=== PATIENT | female | born 1935 | race Caucasian/White ===

== ENCOUNTER 2018-10-14 11:30 | Day surgery (SDC) | payer MEDICARE, OTHER ==
[2018-10-14] MEDS ORDERED: NALOXONE HCL INJ/PF 0.4 MG/1 ML SDV ONE (12:07)
[2018-10-14] MEDS ORDERED: ONDANSETRON HCL INJ/PF 4 MG/2 ML SDV ONE (12:07)
[2018-10-14] MEDS ORDERED: FLUMAZENIL INJ 0.5 MG/5 ML VIAL ONE (12:07)
[2018-10-14] MEDS ORDERED: GLUCAGON,HUMAN RECOMB 1 MG INJ ONE (12:08)
[2018-10-14] MEDS ORDERED: EPINEPHRINE INJ 1 MG/10 ML DISP.SYRIN ONE (12:08)
[2018-10-14] MEDS: MIDAZOLAM 2 MG/2 ML INJ ONE ×3 (12:15→12:30)
[2018-10-14] MEDS: FENTANYL CITRATE INJ/PF 100 MCG/2 ML AMPUL ONE ×2 (12:17→12:25)
--- NOTE | 2018-10-14 13:00 | Operative Report ---
Operative Report DATE OF SURGERY: 10/14/18 Operative Report: The risks, benefits and alternatives of the procedure including the risk of bleeding, perforation requiring surgery are explained to the patient in detail and informed consent is obtained. Patient is brought back to the endoscopy suite and placed in the left, lateral decubital position. Timeout was called. Conscious sedation medications are provided. Rectal examination is done which did not reveal any masses, tears or fissures. An Olympus videoscope was introduced into the patient's rectum. Keeping the lumen in sight at all times the scope was very carefully advanced all the way to the cecum. The cecum was identified by the usual anatomical landmarks of the ileocecal valve as well as appendiceal orifice. Prep was good. The scope was then sequentially pulled back via the rest segments of the colon including the ascending colon, hepatic flexure, transverse colon, splenic flexure, descending colon and finally in to the rectosigmoid portions of the colon. Retroflexion maneuver was performed. PREOPERATIVE DIAGNOSIS: Personal history of polyp POSTOPERATIVE DIAGNOSIS: Descending colon polyp removed via snare polypectomy. Sigmoid diverticulosis without any evidence of diverticulitis. Internal hemorrhoids. Right colon Inflammation status post biopsy OPERATION: Colonoscopy with snare polypectomy. Colonoscopy with biopsy SURGEON: SAQIB OSORIO ANESTHESIA: Moderate Sedation - 4 mg of Versed, 25 mcg of fentanyl for conscious sedation monitoring time 30 minutes. TISSUE REMOVED OR ALTERED: As noted above. COMPLICATIONS: None. ESTIMATED BLOOD LOSS: None. INTRAOPERATIVE FINDINGS: As noted above. PROCEDURE: Patient tolerated the procedure well. No immediate post procedure complications are noted. Patient discharged in good condition. Discharge date 10/14/2018. Discharge diet: Regular. Discharge activity: Regular. 2-3-week follow-up to discuss findings Patient is to try to call the office or proceed to the emergency room today. For the above questions. Wait on the pathology. 3-5-year surveillance colonoscopy.
[2018-10-14 14:01] VITALS: BP 109/52
== END 2018-10-14 13:45 | disposition home or self-care (01) ==
LOC: END 11:30
PROVIDERS: ATTEND Internal Medicine Gastroenterology
DX: D12.4 Benign neoplasm of descending colon (principal); K57.30 Diverticulosis of large intestine without perforation or abscess without bleeding; K64.8 Other hemorrhoids; Z86.010 Personal history of colon polyps; E03.9 Hypothyroidism, unspecified; M19.90 Unspecified osteoarthritis, unspecified site; E78.5 Hyperlipidemia, unspecified; I25.10 Atherosclerotic heart disease of native coronary artery without angina pectoris; I11.9 Hypertensive heart disease without heart failure; G62.9 Polyneuropathy, unspecified; L40.50 Arthropathic psoriasis, unspecified; Z85.3 Personal history of malignant neoplasm of breast; Z79.899 Other long term (current) drug therapy; Z79.891 Long term (current) use of opiate analgesic; Z88.2 Allergy status to sulfonamides; Z91.041 Radiographic dye allergy status
CPT/HCPCS: 45385; 88342 ×2; 88341 ×2; 88305 ×2; J2250; J3010; 45380; J0171; J1610; J2310; J2405; J3490

== ENCOUNTER 2018-12-06 15:55 | Emergency (ER) | payer MEDICARE, OTHER ==
[2018-12-06] MEDS ORDERED: HYDROCODONE/ACETAMINOPHEN 5-325 MG TABLET PO ONE (16:07)
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
--- NOTE | 2018-12-06 17:32 | RADIOLOGY REPORT (SQ) ---
EXAM DESCRIPTION: CT HEAD WITHOUT COMPLETED DATE/TIME: 12/06/2018 5:16 pm REASON FOR STUDY: fall, trauma to head neck and chest COMPARISON: Same day cervical spine CT TECHNIQUE: Axial images acquired through the brain without intravenous contrast. Images reviewed wi th bone, brain and subdural windows. Additional sagittal and coronal reconstructions were generated. Images stored on PACS. All CT scanners at this facility use dose modulation, iterative reconstruction, and/or weight based d osing when appropriate to reduce radiation dose to as low as reasonably achievable (ALARA). [facility]: Dose Right [facility]: CareDose [facility]: Dose Right [facility]: Teradose 4D [facility]: [employer]Me RADIATION DOSE: CT Rad equipment meets quality standard of care and radiation dose reduction techniq ues were employed. CTDIvol: 53.2 mGy. DLP: 1044 mGy-cm. mGy. LIMITATIONS: None. FINDINGS: VENTRICLES: Normal size and contour. CEREBRUM: No masses. No hemorrhage. No midline shift. No evidence for acute infarction. Few scatte red areas of low density in the white matter most likely chronic small vessel ischemic changes. CEREBELLUM: No masses. No hemorrhage. No alteration of density. No evidence for acute infarction. EXTRAAXIAL SPACES: No fluid collections. No masses. ORBITS AND GLOBE: No intra- or extraconal masses. Normal contour of globe without masses. CALVARIUM: No fracture. PARANASAL SINUSES: No fluid or mucosal thickening. SOFT TISSUES: No mass or hematoma. OTHER: No other significant finding. IMPRESSION: NO ACUTE INTRACRANIAL IMAGING FINDINGS. EVIDENCE OF ACUTE STROKE: NO. COMMENT: Quality ID # [id number]: Final reports with documentation of one or more dose reduction techniques (e.g., Automated exposure control, adjustment of the mA and/or kV according to patient size, use of iterative reconstruction technique) TECHNICAL DOCUMENTATION: JOB ID: [id number] [employer]- All Rights Reserved Reading location - IP/workstation name: [email or web address]
--- NOTE | 2018-12-06 17:35 | RADIOLOGY REPORT (SQ) ---
EXAM DESCRIPTION: CT CERVICAL SPINE WITHOUT COMPLETED DATE/TIME: 12/06/2018 5:16 pm REASON FOR STUDY: fall, trauma to head neck and chest COMPARISON: Same day head CT TECHNIQUE: Axial images acquired through the cervical spine without intravenous contrast. Images re viewed with lung, soft tissue and bone windows. Reconstructed coronal and sagittal MPR images review ed. Images stored on PACS. All CT scanners at this facility use dose modulation, iterative reconstruction, and/or weight based d osing when appropriate to reduce radiation dose to as low as reasonably achievable (ALARA). [facility]: Dose Right [facility]: CareDose [facility]: Dose Right [facility]: Teradose 4D [facility]: [employer] RADIATION DOSE: CT Rad equipment meets quality standard of care and radiation dose reduction techniq ues were employed. CTDIvol: 17.8 mGy. DLP: 822 mGy-cm. mGy. LIMITATIONS: None. FINDINGS: ALIGNMENT: Anatomic. MINERALIZATION: Normal. VERTEBRAL BODIES: No fractures or dislocation. DISCS: Mild diffuse loss of disc height. Multilevel small posterior vertebral body osteophytes resul ting in osseous narrowing of the left C3-C4 and C4-C5 neural foramen. FACETS, LATERAL MASSES, POSTERIOR ELEMENTS: No fractures. No dislocation. No acute findings. Mild uncovertebral facet arthropathy. HARDWARE: None in the spine. VISUALIZED RIBS: No fractures. LUNG APICES AND SOFT TISSUES: No significant or acute findings. Metallic clips within the soft tissu es of the neck. OTHER: No other significant finding. IMPRESSION: 1. No acute fracture or listhesis of the cervical spine. 2. Mild degenerative disc disease and uncovertebral facet arthropathy. TECHNICAL DOCUMENTATION: JOB ID: [id number] Quality ID # [id number]: Final reports with documentation of one or more dose reduction techniques (e.g., Au tomated exposure control, adjustment of the mA and/or kV according to patient size, use of iterative reconstruction technique) 2010 [employer]- All Rights Reserved Reading location - IP/workstation name: [email or web address]
--- NOTE | 2018-12-06 17:40 | RADIOLOGY REPORT (SQ) ---
EXAM DESCRIPTION: CT CHEST WITHOUT COMPLETED DATE/TIME: 12/06/2018 5:16 pm REASON FOR STUDY: fall, trauma to head neck and chest COMPARISON: Chest radiograph 07/31/2016 TECHNIQUE: CT scan performed of the chest without intravenous contrast. Images reviewed with lung, soft tissue and bone windows. Reconstructed coronal and sagittal MPR images reviewed. All images st ored on PACS. All CT scanners at this facility use dose modulation, iterative reconstruction, and/or weight based d osing when appropriate to reduce radiation dose to as low as reasonably achievable (ALARA). [facility]: Dose Right [facility]: CareDose [facility]: Dose Right [facility]: Teradose 4D [facility]: [employer] RADIATION DOSE: CT Rad equipment meets quality standard of care and radiation dose reduction techniq ues were employed. CTDIvol: 14.4 mGy. DLP: 513 mGy-cm. mGy. LIMITATIONS: No technical limitations. FINDINGS: LUNGS AND PLEURA: No masses, infiltrates, or pneumothorax. No pleural effusions or pleura l calcifications. Moderate-sized bulla of the right upper lobe. HILAR AND MEDIASTINAL STRUCTURES: No identified masses or abnormal nodes. No obvious aneurysm. HEART AND VASCULAR STRUCTURES: No aneurysm. No pericardial effusion. Calcified plaque of the visual ized aorta. UPPER ABDOMEN: No significant findings. Limited exam. THYROID AND OTHER SOFT TISSUES: No masses. No adenopathy. Metallic clips within the visualized soft tissues of the neck. BONES: No significant finding. Mild degenerative disc disease of the thoracic spine. HARDWARE: None in the chest. OTHER: No other significant findings. IMPRESSION: NO SIGNIFICANT FINDING ON NON-CONTRASTED CHEST CT. TECHNICAL DOCUMENTATION: JOB ID: [id number] Quality ID # [id number]: Final reports with documentation of one or more dose reduction techniques (e.g., Au tomated exposure control, adjustment of the mA and/or kV according to patient size, use of iterative reconstruction technique) 2010 [employer]- All Rights Reserved Reading location - IP/workstation name: [email or web address]
[2018-12-06 18:10] VITALS: BP 148/31
== END 2018-12-06 18:19 | disposition home or self-care (01) ==
LOC: ER 15:55
DX: S13.9XXA Sprain of joints and ligaments of unspecified parts of neck, initial encounter (principal); S09.90XA Unspecified injury of head, initial encounter; R07.89 Other chest pain; R51 Headache; M54.2 Cervicalgia; W19.XXXA Unspecified fall, initial encounter; I10 Essential (primary) hypertension
CPT/HCPCS: 99284; 70450; 71250; 72125; A9270

== ENCOUNTER 2019-09-12 10:32 | Inpatient (IN) | payer MEDICARE, OTHER ==
--- NOTE | 2019-09-12 11:23 | ER Document Report ---
ED Medical Screen (RME) - General Chief Complaint: Fall Stated Complaint: FALL/SHOULDER PAIN Time Seen by Provider: 09/12/19 11:14 Primary Care Provider: BAKARI ARRIAGA MD [Primary Care Provider] - Follow up as needed Mode of Arrival: Medic Information source: Patient, Relative Notes: 83-year-old female presents to ED for complaint of pain to her left side of her face head back of her neck left shoulder and left elbow. She states she tripped going from one room to the other last night and fell landing on her left side. When family found her this morning they called EMS. EMS states that the patient was laying in the same position for at least 15 to 16 hours when they found her. She does have pain to her head face neck her shoulder face and head are bruised and swollen she has tenderness to the left elbow. She states she also has a lot of pain to her left hip where she was lying. I have greeted and performed a rapid initial assessment of this patient. A comprehensive ED assessment and evaluation of the patient, analysis of test results and completion of medical decision making process will be conducted by an additional ED providers. TRAVEL OUTSIDE OF THE [place] IN LAST 30 DAYS: No - Related Data Allergies/Adverse Reactions: Sulfa (Sulfonamide Antibiotics) Allergy (Severe, Verified 12/06/18 16:30) n and v IV Contrast Dye Allergy (Intermediate, Uncoded 09/12/19 11:02) Hives Home Medications: Amlodipine 5 mg 1 tab daily. Hydroxychlodoquine 200 mg 1 tab BID. Levothyroxine 75 mg 1 tab daily. Isosorbide mononit ER 30 mg 1 tab daily. Triamterene-HCTZ 37.5-25 mg 1 tab daily. Tramadol HCL 50 mg 1 tab BID. Nexium 20 mg 1 tab daily Past Medical History - Social History Frequency of alcohol use: None Drug Abuse: None - Past Medical History Cardiac Medical History: Reports: Hx Hypertension Denies: Hx Coronary Artery Disease, Hx Heart Attack Pulmonary Medical History: Denies: Hx Asthma, Hx Bronchitis, Hx COPD, Hx Pneumonia Neurological Medical History: Denies: Hx Cerebrovascular Accident, Hx Seizures Renal/ Medical History: Denies: Hx Peritoneal Dialysis Musculoskeltal Medical History: Reports Hx Arthritis Past Surgical History: Reports: Hx Hysterectomy, Hx Mastectomy - left, Hx Thyroid Surgery. Denies: Hx Pacemaker - Immunizations Hx Diphtheria, Pertussis, Tetanus Vaccination: No Doctor's Discharge - Discharge Referrals: BAKARI ARRIAGA MD [Primary Care Provider] - Follow up as needed
[2019-09-12 11:33] LABS: HEMATOCRIT 40.5 % (36.0-47.0); HEMOGLOBIN 13.5 g/dL (12.0-15.5); MEAN CORPUSCULAR HGB CONC 33.4 g/dL (32.0-36.0); MEAN CORPUSCULAR VOLUME 90 fl (80-97); PLATELET COUNT 424 10^3/uL (150-450); RED BLOOD COUNT 4.52 10^6/uL (3.72-5.28); RED CELL DISTRIBUTION WIDTH 12.7 % (11.5-14.0); WHITE BLOOD COUNT 17.6 10^3/uL (4.0-10.5)
[2019-09-12 11:38] LABS: INTERNATIONAL RATION (INR) 1.12; PROTHROMBIN TIME 14.4 SEC (11.4-15.4)
[2019-09-12 11:49] LABS: ABSOLUTE LYMPHOCYTES# (MANUAL) 0.5 10^3/uL (0.5-4.7); ABSOLUTE MONOCYTES # (MANUAL) 1.1 10^3/uL (0.1-1.4); BASOPHILS % (MANUAL) 0 % (0-2); EOSINOPHILS % (MANUAL) 0 % (0-6); LYMPHOCYTES % (MANUAL) 3 % (13-45); MONOCYTES % (MANUAL) 6 % (3-13); SEGMENTED NEUTROPHILS % (MAN) 91 % (42-78); TOTAL CELLS COUNTED 100
[2019-09-12 11:50] LABS: ALKALINE PHOSPHATASE 87 U/L (38-126); ANION GAP 13 (5-19); ASPARTATE AMINO TRANSFERASE 46 U/L (14-36); BILIRUBIN,DIRECT 0.2 mg/dL (0.0-0.4); BILIRUBIN,TOTAL 0.6 mg/dL (0.2-1.3); BLOOD UREA NITROGEN 24 mg/dL (7-20); CALCIUM 10.4 mg/dL (8.4-10.2); CARBON DIOXIDE 23 mmol/L (22-30); CHLORIDE 102 mmol/L (98-107); CREATINE KINASE 1352 U/L (30-135); GLUCOSE 129 mg/dL (75-110); PLATELET COMMENT ADEQUATE; POTASSIUM 4.2 mmol/L (3.6-5.0); SMUDGE CELLS PRESENT; TOTAL PROTEIN 6.5 g/dL (6.3-8.2)
[2019-09-12 12:01] LABS: CREATINE KINASE MB 28.4 ng/mL (<4.55)
[2019-09-12 12:04] LABS: TROPONIN I 0.057 ng/mL
[2019-09-12] MEDS ORDERED: NORMAL SALINE 1000 ML 1,000 ML IV ONE (12:38)
--- NOTE | 2019-09-12 12:41 | ER Document Report ---
ED Fall - General Chief Complaint: Fall Stated Complaint: FALL/SHOULDER PAIN Time Seen by Provider: 09/12/19 11:14 Primary Care Provider: BAKARI ARRIAGA MD [Primary Care Provider] - Follow up as needed Mode of Arrival: Medic Information source: Patient, Relative Notes: Patient is 83-year-old female with a history of arthritis who presents to the emergency department after a fall. Patient does live by herself. She reports falling last night around 6:30 PM and able to get up by herself. Family states they stop by her house this morning to check on her found her laying on the ground. Patient denies head injury or loss of consciousness. Patient reports last night she was sitting on a truck at the end of the bed when she attempted to get up and fell onto her left side. Patient states that she was unable to get up due to significant left upper arm pain and left hip pain. Patient denies hitting her head or loss of consciousness. Patient states she did urinate on herself multiple times that she was unable to get up. Patient reports left hip pain, left arm pain. Patient reports that her hip pain feels like her normal. TRAVEL OUTSIDE OF THE [place] IN LAST 30 DAYS: No - Related data Allergies/Adverse Reactions: Sulfa (Sulfonamide Antibiotics) Allergy (Severe, Verified 12/06/18 16:30) n and v IV Contrast Dye Allergy (Intermediate, Uncoded 09/12/19 11:02) Hives Home Medications: Amlodipine 5 mg 1 tab daily. Hydroxychlodoquine 200 mg 1 tab BID. Levothyroxine 75 mg 1 tab daily. Isosorbide mononit ER 30 mg 1 tab daily. Triamterene-HCTZ 37.5-25 mg 1 tab daily. Tramadol HCL 50 mg 1 tab BID. Nexium 20 mg 1 tab daily Past Medical History - General Information source: Patient, Relative - Social History Smoking Status: Never Smoker Frequency of alcohol use: None Drug Abuse: None Lives with: Alone Family History: None, Reviewed & Not Pertinent Patient has suicidal ideation: No Patient has homicidal ideation: No - Past Medical History Cardiac Medical History: Reports: Hx Hypertension Denies: Hx Coronary Artery Disease, Hx Heart Attack Pulmonary Medical History: Reports: None Denies: Hx Asthma, Hx Bronchitis, Hx COPD, Hx Pneumonia EENT Medical History: Reports: None Neurological Medical History: Reports: None. Denies: Hx Cerebrovascular Accident, Hx Seizures Endocrine Medical History: Reports: None Renal/ Medical History: Reports: Hx Kidney Stones. Denies: Hx Peritoneal Dialysis Malignancy Medical History: Reports: None GI Medical History: Reports: None Musculoskeletal Medical History: Reports Hx Arthritis Skin Medical History: Reports None Psychiatric Medical History: Reports: None Traumatic Medical History: Reports: None Infectious Medical History: Reports: None Past Surgical History: Reports: Hx Hysterectomy, Hx Mastectomy - left, Hx Thyroid Surgery. Denies: Hx Pacemaker - Immunizations Hx Diphtheria, Pertussis, Tetanus Vaccination: No Review of Systems - Review of Systems Constitutional: No symptoms reported EENT: No symptoms reported Cardiovascular: No symptoms reported Respiratory: No symptoms reported Gastrointestinal: No symptoms reported Genitourinary: No symptoms reported Female Genitourinary: See HPI Musculoskeletal: See HPI Skin: No symptoms reported Hematologic/Lymphatic: No symptoms reported Neurological/Psychological: No symptoms reported Physical Exam - Vital signs Vitals: Temp Pulse BP Pulse Ox 98.5 F 82 175/80 H 98 09/12/19 10:35 09/12/19 10:35 09/12/19 10:35 09/12/19 10:35 Interpretation: Hypertensive - Notes Notes: GENERAL: Supine, in hard c-collar, frail elderly adult. HEAD: Ecchymosis noted around the left eye and left side of the face, normocephalic. Nephrology stopped coming EYES: Pupils equal round and reactive to light, extraocular movements intact, sclera anicteric, conjunctiva are normal. ENT: Nares patent, oropharynx clear without exudates. Moist mucous membranes. NECK: ROM not assessed due to hard c-collar, supple without lymphadenopathy or JVD. LUNGS: Breath sounds clear to auscultation bilaterally and equal. No wheezes rales or rhonchi. HEART: Regular rate and rhythm without murmurs, rubs or gallops. ABDOMEN: Soft, nontender, normoactive bowel sounds. No guarding, no rebound. No masses appreciated. BACK: No cervical, thoracic, lumbar midline tenderness. No saddle anesthesia, normal distal neurovascular exam. GENITOURINARY: Deferred. EXTREMITIES: Erythema noted to left patella without edema or ecchymosis. Patient has significant ecchymosis noted to the left upper arm. The humerus is extremely tender to touch. Patient can move the left shoulder joint but reports this causes significant pain to the left upper arm. Patient has strong bilateral equal rn occupational. Patient has a strong palpable +2 left brachial and radial pulse. NEUROLOGICAL: Cranial nerves II through XII grossly intact. Normal speech, gait not tested. PSYCH: Normal mood, normal affect. SKIN: Warm, Dry, normal turgor, no rashes or lesions noted. Course - Re-evaluation Re-evalutation: 09/12/19 15:11 Patient medicated for left upper arm pain. I did speak with Dr. Barrera in regards to the patient's proximal humerus fracture that extends into the tuberosity. He does recommend the patient be placed in a sling and if she is discharged after being medically cleared he can see her in outpatient basis within the next week. He states that if she is admitted to the hospital he can consult with her while she is here. No surgical intervention needed at this time 09/12/19 18:01 Patient CK and troponin have increased. Will consult for admission. Upon reevaluation patient resting comfortably on stretcher. Patient denies chest pain. Patient does report feeling achy all over but attributes this to the fall. 09/12/19 18:15 I did consult the hospitalist group who will admit. They are aware of the increase in troponin, CK and new left bundle branch block. Patient does not kaplan ve any current cardiac symptoms. Patient was placed in a sling due to the orthopedic recommendations. Patient denies complaints or concerns at this time. 09/12/19 18:26 Chest x-ray was unremarkable for any rib fractures. - Vital Signs Vital signs: Temp Pulse Resp BP Pulse Ox 100.5 F H 82 18 162/61 H 96 09/12/19 16:07 09/12/19 10:35 09/12/19 17:06 09/12/19 17:06 09/12/19 17:00 - Laboratory Result Diagrams: 09/12/19 11:18 09/12/19 11:18 Laboratory results interpreted by me: 09/12/19 09/12/19 09/12/19 11:18 11:18 11:18 WBC 17.6 H Seg Neuts % (Manual) 91 H Lymphocytes % (Manual) 3 L Abs Neuts (Manual) 16.0 H BUN 24 H Est GFR (MDRD) Non-Af 50 L Glucose 129 H Calcium 10.4 H AST 46 H Creatine Kinase 1352 H CK-MB (CK-2) 28.40 H Urine Blood Leukocyte Esterase Rfl 09/12/19 09/12/19 14:10 17:04 WBC Seg Neuts % (Manual) Lymphocytes % (Manual) Abs Neuts (Manual) BUN Est GFR (MDRD) Non-Af Glucose Calcium AST Creatine Kinase 1492 H CK-MB (CK-2) Urine Blood SMALL H Leukocyte Esterase Rfl TRACE H 09/12/19 13:03 Patient has leukocytosis of 17.6. CK-MB is 28.4 and CK is 1352. Laboratory 09/12/19 09/12/19 09/12/19 11:18 11:18 11:18 WBC 17.6 H RBC 4.52 Hgb 13.5 Hct 40.5 MCV 90 MCH 30.0 MCHC 33.4 RDW 12.7 Plt Count 424 Lymph % (Auto) Not Reportable Allen % (Auto) Not Reportable Eos % (Auto) Not Reportable Baso % (Auto) Not Reportable Absolute Neuts (auto) Not Reportable Absolute Lymphs (auto) Not Reportable Absolute Monos (auto) Not Reportable Absolute Eos (auto) Not Reportable Absolute Basos (auto) Not Reportable Total Counted 100 Seg Neutrophils % Not Reportable Seg Neuts % (Manual) 91 H Lymphocytes % (Manual) 3 L Monocytes % (Manual) 6 Eosinophils % (Manual) 0 Basophils % (Manual) 0 Abs Neuts (Manual) 16.0 H Abs Lymphs (Manual) 0.5 Abs Monocytes (Manual) 1.1 Absolute Eos (Manual) 0.0 Abs Basophils (Manual) 0.0 Smudge Cells PRESENT Platelet Comment ADEQUATE PT INR APTT Sodium 138.0 Potassium 4.2 Chloride 102 Carbon Dioxide 23 Anion Gap 13 BUN 24 H Creatinine 1.04 Est GFR ( Amer) > 60 Est GFR (MDRD) Non-Af 50 L Glucose 129 H Calcium 10.4 H Total Bilirubin 0.6 Direct Bilirubin 0.2 Neonat Total Bilirubin Not Reportable Neonat Direct Bilirubin Not Reportable Neonat Indirect Bili Not Reportable AST 46 H ALT 23 Alkaline Phosphatase 87 Creatine Kinase 1352 H CK-MB (CK-2) 28.40 H Troponin I 0.057 Total Protein 6.5 Albumin 4.0 09/12/19 11:18 WBC RBC Hgb Hct MCV MCH MCHC RDW Plt Count Lymph % (Auto) Allen % (Auto) Eos % (Auto) Baso % (Auto) Absolute Neuts (auto) Absolute Lymphs (auto) Absolute Monos (auto) Absolute Eos (auto) Absolute Basos (auto) Total Counted Seg Neutrophils % Seg Neuts % (Manual) Lymphocytes % (Manual) Monocytes % (Manual) Eosinophils % (Manual) Basophils % (Manual) Abs Neuts (Manual) Abs Lymphs (Manual) Abs Monocytes (Manual) Absolute Eos (Manual) Abs Basophils (Manual) Smudge Cells Platelet Comment PT 14.4 INR 1.12 APTT 30.0 Sodium Potassium Chloride Carbon Dioxide Anion Gap BUN Creatinine Est GFR ( Amer) Est GFR (MDRD) Non-Af Glucose Calcium Total Bilirubin Direct Bilirubin Neonat Total Bilirubin Neonat Direct Bilirubin Neonat Indirect Bili AST ALT Alkaline Phosphatase Creatine Kinase CK-MB (CK-2) Troponin I Total Protein Albumin - Diagnostic Test Radiology reviewed: Reports reviewed Radiology results interpreted by me: 09/12/19 13:09 Elbow X-Ray 09/12/19 11:16 IMPRESSION: Very limited negative study Hip X-Ray 09/12/19 11:16 IMPRESSION: NEGATIVE STUDY OF THE LEFT HIP AND PELVIS. NO RADIOGRAPHIC EVIDENCE OF ACUTE INJURY. Shoulder X-Ray 09/12/19 11:16 IMPRESSION: Acute fracture, left proximal humerus metaphysis, extending into the greater tuberosity. Mild valgus angulation at the fracture site Cervical Spine CT 09/12/19 11:18 IMPRESSION: CHRONIC DEGENERATIVE CHANGES. NO ACUTE FINDINGS. Facial Bones CT 09/12/19 11:18 IMPRESSION: NO ACUTE FINDINGS. Head CT 09/12/19 11:18 IMPRESSION: MILD CHRONIC CHANGES OF ATROPHY AND MICROVASCULAR ISCHEMIA. NO ACUTE PROCESS. EVIDENCE OF ACUTE STROKE: NO. - EKG Interpretation by Me Additional EKG results interpreted by me: 09/12/19 18:17 Patient's EKG shows a sinus rhythm with a heart rate of 93. Patient's PA interval is 154, QT 384 and QTC is 478. Patient had a left axis deviation. Patient does have a left bundle branch block which does not appear to be present on previous EKG. Discharge - Discharge Clinical Impression: Elevated troponin Fall Qualifiers: Encounter type: initial encounter Qualified Code(s): W19.XXXA - Unspecified fall, initial encounter Rhabdomyolysis Qualifiers: Rhabdomyolysis type: traumatic Encounter type: initial encounter Qualified Code(s): T79.6XXA - Traumatic ischemia of muscle, initial encounter Fracture, humerus, proximal Qualifiers: Encounter type: initial encounter Fracture type: closed Fracture morphology: unspecified fracture morphology Laterality: left Qualified Code(s): S42.202A - Unspecified fracture of upper end of left humerus, initial encounter for closed fracture Head injury due to trauma Qualifiers: Encounter type: initial encounter Qualified Code(s): S09.90XA - Unspecified injury of head, initial encounter Leukocytosis Qualifiers: Leukocytosis type: unspecified Qualified Code(s): D72.829 - Elevated white blood cell count, unspecified Condition: Stable Disposition: ADMITTED OBSERVATION Admitting Provider: Moiz (Hospitalist) Unit Admitted: Medical Floor Referrals: BAKARI ARRIAGA MD [Primary Care Provider] - Follow up as needed
--- NOTE | 2019-09-12 12:50 | RADIOLOGY REPORT (SQ) ---
EXAM DESCRIPTION: HIP LEFT AP/LATERAL COMPLETED DATE/TIME: 09/12/2019 12:33 pm REASON FOR STUDY: fall pain shoulder hip and elbow COMPARISON: 2007 NUMBER OF VIEWS: Two views. TECHNIQUE: AP pelvis and additional frog-leg view of the left hip. LIMITATIONS: None. FINDINGS: MINERALIZATION: Osteopenic LEFT HIP: No fracture or dislocation. No worrisome bone lesions. RIGHT HIP: No fracture or dislocation. No worrisome bone lesions. PUBIS AND ISCHIUM: No fracture. PELVIS: No fracture. SACRUM: No fracture or dislocation. No worrisome bone lesions. LOWER LUMBAR SPINE: No fracture or dislocation. No worrisome bone lesions. No significant disc disea se. SOFT TISSUES: No findings. OTHER: No other significant finding. IMPRESSION: NEGATIVE STUDY OF THE LEFT HIP AND PELVIS. NO RADIOGRAPHIC EVIDENCE OF ACUTE INJURY. COMMENT: Consider follow-up repeat films if there is continued left hip pain. TECHNICAL DOCUMENTATION: JOB ID: [id number] [employer]- All Rights Reserved Reading location - IP/workstation name: [email or web address]
--- NOTE | 2019-09-12 12:52 | RADIOLOGY REPORT (SQ) ---
EXAM DESCRIPTION: SHOULDER LEFT 2 OR MORE VIEWS COMPLETED DATE/TIME: 09/12/2019 12:33 pm REASON FOR STUDY: fall pain shoulder hip and elbow COMPARISON: None. NUMBER OF VIEWS: Three views. TECHNIQUE: Internal rotation, external rotation, and Y view images acquired of the left shoulder. LIMITATIONS: None. FINDINGS: MINERALIZATION: Osteopenic BONES: Acute fracture left proximal humerus metaphysis extending into the greater tuberosity. Mild v algus angulation at the fracture site. Left upper ribs, scapula, clavicle are intact. JOINTS: No glenohumeral dislocation. No acromioclavicular joint widening VISUALIZED LUNGS AND RIBS: No pneumothorax. No rib fracture. SOFT TISSUES: Surgical clips along the paratracheal region OTHER: No other significant finding. IMPRESSION: Acute fracture, left proximal humerus metaphysis, extending into the greater tuberosity. Mild valgus angulation at the fracture site TECHNICAL DOCUMENTATION: JOB ID: [id number] [employer]- All Rights Reserved Reading location - IP/workstation name: [email or web address]
--- NOTE | 2019-09-12 12:53 | RADIOLOGY REPORT (SQ) ---
EXAM DESCRIPTION: ELBOW LEFT AP/LATERAL COMPLETED DATE/TIME: 09/12/2019 12:33 pm REASON FOR STUDY: fall pain shoulder hip and elbow COMPARISON: None. NUMBER OF VIEWS: Two views. TECHNIQUE: AP and lateral radiographic images acquired of the left elbow. LIMITATIONS: Nonstandard radiographic positioning. Patient has a left proximal humerus fracture whi ch limits positioning FINDINGS: No acute fracture or malalignment. Bones osteopenic. No gross elbow joint effusion IMPRESSION: Very limited negative study TECHNICAL DOCUMENTATION: JOB ID: [id number] [employer]- All Rights Reserved Reading location - IP/workstation name: [email or web address]
--- NOTE | 2019-09-12 13:05 | RADIOLOGY REPORT (SQ) ---
EXAM DESCRIPTION: CT HEAD WITHOUT COMPLETED DATE/TIME: 09/12/2019 12:48 pm REASON FOR STUDY: fall pain face neck and head lay for 15-16 hours COMPARISON: 12/06/2018. TECHNIQUE: Axial images acquired through the brain without intravenous contrast. Images reviewed wi th bone, brain and subdural windows. Additional sagittal and coronal reconstructions were generated. Images stored on PACS. All CT scanners at this facility use dose modulation, iterative reconstruction, and/or weight based d osing when appropriate to reduce radiation dose to as low as reasonably achievable (ALARA). [facility]: Dose Right [facility]: CareDose [facility]: Dose Right [facility]: Teradose 4D [facility]: Smart [employer] RADIATION DOSE: CT Rad equipment meets quality standard of care and radiation dose reduction techniq ues were employed. CTDIvol: 53.2 mGy. DLP: 1044 mGy-cm. mGy. LIMITATIONS: None. FINDINGS: VENTRICLES: Prominent. CEREBRUM: No masses. No hemorrhage. No midline shift. Areas of low density in the white matter mos t likely due to chronic micro-vascular ischemic change. No evidence for acute infarction. CEREBELLUM: No masses. No hemorrhage. No alteration of density. No evidence for acute infarction. EXTRAAXIAL SPACES: Mild age-related involutional change. No fluid collections. No masses. ORBITS AND GLOBE: No intra- or extraconal masses. Normal contour of globe without masses. CALVARIUM: No fracture. PARANASAL SINUSES: No fluid or mucosal thickening. SOFT TISSUES: No mass or hematoma. OTHER: No other significant finding. IMPRESSION: MILD CHRONIC CHANGES OF ATROPHY AND MICROVASCULAR ISCHEMIA. NO ACUTE PROCESS. EVIDENCE OF ACUTE STROKE: NO. TECHNICAL DOCUMENTATION: JOB ID: [id number] Quality ID # [id number]: Final reports with documentation of one or more dose reduction techniques (e.g., Au tomated exposure control, adjustment of the mA and/or kV according to patient size, use of iterative reconstruction technique) 2010 [employer]- All Rights Reserved Reading location - IP/workstation name: [email or web address]
--- NOTE | 2019-09-12 13:07 | RADIOLOGY REPORT (SQ) ---
EXAM DESCRIPTION: CT CERVICAL SPINE WITHOUT COMPLETED DATE/TIME: 09/12/2019 12:48 pm REASON FOR STUDY: fall pain face neck and head lay for 15-16 hours COMPARISON: 12/06/2018. TECHNIQUE: Axial images acquired through the cervical spine without intravenous contrast. Images re viewed with lung, soft tissue and bone windows. Reconstructed coronal and sagittal MPR images review ed. Images stored on PACS. All CT scanners at this facility use dose modulation, iterative reconstruction, and/or weight based d osing when appropriate to reduce radiation dose to as low as reasonably achievable (ALARA). [facility]: Dose Right [facility]: CareDose [facility]: Dose Right [facility]: Teradose 4D [facility]: Smart [employer] RADIATION DOSE: CT Rad equipment meets quality standard of care and radiation dose reduction techniq ues were employed. CTDIvol: 18.8 mGy. DLP: 353 mGy-cm. mGy. LIMITATIONS: None. FINDINGS: ALIGNMENT: Anatomic. MINERALIZATION: Normal. VERTEBRAL BODIES: No fractures or dislocation. DISCS: Multilevel disc space narrowing with osteophytes. FACETS, LATERAL MASSES, POSTERIOR ELEMENTS: Facet arthropathy. No fractures. No dislocation. No ac inaja findings. HARDWARE: None in the spine. VISUALIZED RIBS: No fractures. LUNG APICES AND SOFT TISSUES: No significant or acute findings. OTHER: No other significant finding. IMPRESSION: CHRONIC DEGENERATIVE CHANGES. NO ACUTE FINDINGS. TECHNICAL DOCUMENTATION: JOB ID: [id number] Quality ID # [id number]: Final reports with documentation of one or more dose reduction techniques (e.g., Au tomated exposure control, adjustment of the mA and/or kV according to patient size, use of iterative reconstruction technique) 2010 [employer]- All Rights Reserved Reading location - IP/workstation name: [email or web address]
--- NOTE | 2019-09-12 13:08 | RADIOLOGY REPORT (SQ) ---
EXAM DESCRIPTION: CT FACIAL AREA WITHOUT COMPLETED DATE/TIME: 09/12/2019 12:48 pm REASON FOR STUDY: fall pain face neck and head lay for 15-16 hours COMPARISON: None. TECHNIQUE: Noncontrasted images through the facial bones and orbits windowed for bone and soft tissu e. Additional coronal and sagittal reconstructed images reviewed. All images stored on PACS. All CT scanners at this facility use dose modulation, iterative reconstruction, and/or weight based d osing when appropriate to reduce radiation dose to as low as reasonably achievable (ALARA). [facility]: Dose Right [facility]: CareDose [facility]: Dose Right [facility]: Teradose 4D [facility]: [employer] RADIATION DOSE: CT Rad equipment meets quality standard of care and radiation dose reduction techniq ues were employed. CTDIvol: 30.4 mGy. DLP: 597 mGy-cm. mGy. LIMITATIONS: None. FINDINGS: FACIAL BONES: No fracture or bone lesion. ORBITS: Intact. No fracture. Symmetric intact globes and retroorbital soft tissues. PARANASAL SINUSES: Clear. No significant mucosal thickening, mass or fluid. No nasal polyps. Maxill caitlyn sinus outlets are patent. SOFT TISSUES: No mass or edema. INFERIOR BRAIN: Limited view. No acute findings. OTHER: No other significant finding. IMPRESSION: NO ACUTE FINDINGS. TECHNICAL DOCUMENTATION: JOB ID: [id number] Quality ID # [id number]: Final reports with documentation of one or more dose reduction techniques (e.g., Au tomated exposure control, adjustment of the mA and/or kV according to patient size, use of iterative reconstruction technique) 2010 [employer]- All Rights Reserved Reading location - IP/workstation name: [email or web address]
[2019-09-12] MEDS ORDERED: FENTANYL CITRATE INJ/PF 100 MCG/2 ML AMPUL IV ONE (14:09)
[2019-09-12 15:08] LABS: APPEARANCE,URINE CLEAR; BILIRUBIN,URINE NEGATIVE (NEGATIVE); COLOR,URINE YELLOW; GLUCOSE, URINE NEGATIVE (NEGATIVE); KETONES,URINE NEGATIVE (NEGATIVE); PROTEIN,URINE NEGATIVE (NEGATIVE); URINE SPECIFIC GRAVITY 1.012; UROBILINOGEN,URINE NEGATIVE mg/dL (<2.0)
[2019-09-12] MEDS ORDERED: HYDROCODONE/ACETAMINOPHEN 5-325 MG TABLET PO ONE (16:26)
[2019-09-12] MEDS ORDERED: ACETAMINOPHEN 325 MG TABLET PO ONE (16:41)
--- NOTE | 2019-09-12 18:24 | RADIOLOGY REPORT (SQ) ---
EXAM DESCRIPTION: RIBS BILATERAL W/PA CXR COMPLETED DATE/TIME: 09/12/2019 6:03 pm REASON FOR STUDY: fall, rib pain COMPARISON: Left shoulder radiographs 09/12/2019 TECHNIQUE: Frontal view of the chest and additional views of the right and left ribs acquired. NUMBER OF VIEWS: Six view. LIMITATIONS: None. FINDINGS: FRONTAL CXR: No pneumothorax. No pleural effusion. No atelectasis or infiltrates. RIBS: No displaced rib fractures. No lytic or blastic bony lesions. OTHER: Demonstration of a moderately displaced transverse fracture of the left proximal humeral metap hysis. IMPRESSION: No pneumothorax. No displaced rib fracture. Re- demonstration of left humeral fracture . COMMENT: SITE OF TRAUMA/COMPLAINT MARKED/STAMP COMPLETED: NO. TECHNICAL DOCUMENTATION: JOB ID: [id number] [employer]- All Rights Reserved Reading location - IP/workstation name: [email or web address]
[2019-09-12] MEDS ORDERED: ONDANSETRON HCL INJ/PF 4 MG/2 ML SDV IV PRN (18:33)
[2019-09-12] MEDS ORDERED: MAGNESIUM HYDROXIDE SUSP 30 ML UDCUP PO PRN (18:33)
[2019-09-12] MEDS ORDERED: ONDANSETRON 4 MG TAB.RAPDIS PO PRN (18:33)
[2019-09-12] MEDS ORDERED: HYDRALAZINE HCL INJ/PF 20 MG/1 ML SDV IV PRN (18:44)
--- NOTE | 2019-09-12 19:04 | PDOC H&P ---
History of Present Illness Admission Date/PCP: BAKARI ARRIAGA MD History of Present Illness: RONALD ROSAS is a 83 year old female has night around 1830 hrs. tripped and fell at home. Due to being wedged up against the door in a coffee table she was unable to get up because of pain in her left hip and leg and left arm. Laid there until around 0930 hrs. this morning was found by her daughter. Comes in now complaining of left shoulder pain, rib pain, left hip pain, left leg pain. So has what appears to be a "black eye" on the left side. He had no loss of consciousness she had no syncope. Does have a history of coronary artery disease but no MIs she also has a history of hypertension, and a history of arthritis in several joints. She does have a fracture of the left humerus this is of the proximal humerus metaphysis extending into the greater tuberosity. There is also mild valgus angulation at the fracture site. The pedis was called but they simply said to put her in a sling and they would see her in the office in follow-up. Recall she is 83 and has mild elevation of her CK as well as troponin going to put her in the hospital for observation status and treat her pain. Family agrees with this work-up. They are in the room during the examination. Past Medical History Cardiac Medical History: Reports: Hypertension Denies: Coronary Artery Disease, Myocardial Infarction Pulmonary Medical History: Reports: None Denies: Asthma, Bronchitis, Chronic Obstructive Pulmonary Disease (COPD), Pneumonia EENT Medical History: Reports: None Neurological Medical History: Reports: None Denies: Seizures Endocrine Medical History: Reports: None Malignancy Medical History: Reports: None GI Medical History: Reports: None Musculoskeltal Medical History: Reports: Arthritis Skin Medical History: Reports: None Psychiatric Medical History: Reports: None Traumatic Medical History: Reports: None Hematology: Reports: Anemia - hx of Infectious Medical History: Reports: None Past Surgical History Past Surgical History: Reports: Hysterectomy, Mastectomy - left Denies: Pacemaker Social History Lives with: Alone Smoking Status: Never Smoker - Advance Directive Resuscitation Status: Full Code Family History Family History: None, Reviewed & Not Pertinent Parental Family History Reviewed: No Children Family History Reviewed: No Sibling(s) Family History Reviewed.: No Medication/Allergy Home Medications: Amlodipine Besylate 5 mg PO DAILY 08/31/15 Diazepam [Valium 5 mg Tablet] 5 mg PO BID PRN 08/31/15 Enalapril Maleate 10 mg PO BID 08/31/15 Hydroxychloroquine Sulfate [Plaquenil 200 mg Tablet] 200 mg PO BID 08/31/15 Levothyroxine Sodium 75 mcg PO DAILY 08/31/15 Aspirin [Aspirin EC] 81 mg PO DAILY 07/31/16 Esomeprazole Magnesium [Nexium] 20 mg PO DAILY 07/31/16 Tramadol HCl 50 mg PO BID 07/31/16 Isosorbide Mononitrate [Imdur 30 mg Tablet.er] 15 mg PO DAILY 10/14/18 Triamterene/Hydrochlorothiazid [Triamterene-Hctz 37.5-25 mg Cp] 1 each PO DAILY 10/14/18 Allergies/Adverse Reactions: Sulfa (Sulfonamide Antibiotics) Allergy (Severe, Verified 12/06/18 16:30) n and v IV Contrast Dye Allergy (Intermediate, Uncoded 09/12/19 11:02) Hives Review of Systems Constitutional: PRESENT: weakness, other - Pain in multiple joints all on the left side.. ABSENT: chills, fever(s), headache(s), weight gain, weight loss Cardiovascular: PRESENT: other - No chest pain. ABSENT: chest pain, dyspnea on exertion, edema, orthropnea, palpitations Respiratory: ABSENT: cough, hemoptysis Genitourinary: ABSENT: dysuria, hematuria Neurological: PRESENT: other - She does complain of a neuropathy which she has had in the last several months involving her feet. ABSENT: abnormal gait, abnormal speech, confusion, dizziness, focal weakness, syncope Psychiatric: ABSENT: anxiety, depression, homidical ideation, suicidal ideation Physical Exam Vital Signs: Temp Pulse Resp BP Pulse Ox 100.5 F H 82 18 162/61 H 96 09/12/19 16:07 09/12/19 10:35 09/12/19 17:06 09/12/19 17:06 09/12/19 17:00 Intake & Output 09/11/19 09/12/19 09/13/19 06:59 06:59 06:59 Intake Total 1000 Balance 1000 Weight 86.2 kg General appearance: PRESENT: mild distress, other - She has significant bruising and bleeding into the left biceps and triceps area Head exam: PRESENT: other Eye exam: PRESENT: EOMI, other - She has what appears to be a black eye with a small abrasion was however equal and reactive Respiratory exam: PRESENT: clear to auscultation kayleigh. ABSENT: rales, rhonchi, wheezes Cardiovascular exam: PRESENT: RRR. ABSENT: diastolic murmur, rubs, systolic murmur Extremities exam: PRESENT: tenderness, other - Patient is tender to palpate over the left pelvis also tender to palpate over the left shoulder also tender to palpate over the left ribs Neurological exam: PRESENT: alert, awake, oriented to person, oriented to place, oriented to time, oriented to situation, CN II-XII grossly intact. ABSENT: motor sensory deficit Psychiatric exam: PRESENT: appropriate affect, normal mood, other - She is very pleasant and answers all questions appropriately. ABSENT: homicidal ideation, suicidal ideation Results Laboratory Results: 09/12/19 11:18 09/12/19 11:18 09/12/19 09/12/19 09/12/19 11:18 11:18 14:10 WBC 17.6 H RBC 4.52 Hgb 13.5 Hct 40.5 MCV 90 MCH 30.0 MCHC 33.4 RDW 12.7 Plt Count 424 Seg Neutrophils % Not Reportable Sodium 138.0 Potassium 4.2 Chloride 102 Carbon Dioxide 23 Anion Gap 13 BUN 24 H Creatinine 1.04 Est GFR ( Amer) > 60 Glucose 129 H Calcium 10.4 H Total Bilirubin 0.6 AST 46 H Alkaline Phosphatase 87 Total Protein 6.5 Albumin 4.0 Urine Color YELLOW Urine Appearance CLEAR Urine pH 5.0 Ur Specific [place] 1.012 Urine Protein NEGATIVE Urine Glucose (UA) NEGATIVE Urine Ketones NEGATIVE Urine Blood SMALL H Urine RBC (Auto) 1 09/12/19 09/12/19 09/12/19 11:18 11:18 17:04 Creatine Kinase 1352 H 1492 H CK-MB (CK-2) 28.40 H Troponin I 0.057 09/12/19 17:04 Creatine Kinase CK-MB (CK-2) Troponin I 0.154 Impressions: Elbow X-Ray 09/12/19 11:16 IMPRESSION: Very limited negative study Hip X-Ray 09/12/19 11:16 IMPRESSION: NEGATIVE STUDY OF THE LEFT HIP AND PELVIS. NO RADIOGRAPHIC EVIDENCE OF ACUTE INJURY. Shoulder X-Ray 10/19/19 11:16 IMPRESSION: Acute fracture, left proximal humerus metaphysis, extending into the greater tuberosity. Mild valgus angulation at the fracture site Cervical Spine CT 09/12/19 11:18 IMPRESSION: CHRONIC DEGENERATIVE CHANGES. NO ACUTE FINDINGS. Facial Bones CT 09/12/19 11:18 IMPRESSION: NO ACUTE FINDINGS. Head CT 09/12/19 11:18 IMPRESSION: MILD CHRONIC CHANGES OF ATROPHY AND MICROVASCULAR ISCHEMIA. NO ACUTE PROCESS. EVIDENCE OF ACUTE STROKE: NO. Ribs X-Ray 09/12/19 16:41 IMPRESSION: No pneumothorax. No displaced rib fracture. Re- demonstration of left humeral fracture. Assessment and Plan - Diagnosis (1) Elevated troponin Is this a current diagnosis for this admission?: Yes (2) Fall Qualifiers: Encounter type: initial encounter Qualified Code(s): W19.XXXA - Unspecified fall, initial encounter Is this a current diagnosis for this admission?: Yes (3) Fracture, humerus, proximal Qualifiers: Encounter type: initial encounter Fracture type: closed Fracture morphology: unspecified fracture morphology Laterality: left Qualified Code(s): S42.202A - Unspecified fracture of upper end of left humerus, initial encounter for closed fracture Is this a current diagnosis for this admission?: Yes (4) Leukocytosis Qualifiers: Leukocytosis type: unspecified Qualified Code(s): D72.829 - Elevated white blood cell count, unspecified Is this a current diagnosis for this admission?: Yes (5) Rhabdomyolysis Qualifiers: Rhabdomyolysis type: traumatic Encounter type: initial encounter Qualified Code(s): T79.6XXA - Traumatic ischemia of muscle, initial encounter Is this a current diagnosis for this admission?: Yes - Plan Summary Summary: Patient has multiple lab abnormalities. Feel that most of these are on the basis of her lying on the floor for 15 hours does not have any chest pain so I think the elevated troponin is coming just muscle breakdown obviously the CK is from the same thing. At 83 with her medical condition he would not be a candidate for anything aggressive such as catheterization and further cardiac work-up Put patient in for IV fluid gentle hydration, pain medication, serial lab work. Patient and her family understands this and are appreciative of us putting her in tonight. - Time Time Spent with patient: 35 or more minutes
[2019-09-12] MEDS: OXYCODONE-ACETAMINOPHEN 5-325 MG TABLET PO PRN (20:00)
[2019-09-12] MEDS ORDERED: POLYVINYL ALCOHOL 1.4% OPH SOLN 15 ML OU PRN (20:27)
[2019-09-12] MEDS: ISOSORBIDE MONONITRATE 30 MG TAB.ER.24H PO SCH (22:49)
[2019-09-12] MEDS: FAMOTIDINE 20 MG TABLET PO SCH (22:49)
[2019-09-12 23:42] LABS: CREATINE KINASE MB 19.6 ng/mL (<4.55); TROPONIN I 0.17 ng/mL
--- NOTE | 2019-09-13 00:21 | EKG REPORT ---
SEVERITY:- ABNORMAL ECG - SINUS RHYTHM LEFT BUNDLE BRANCH BLOCK : Confirmed by: Char Payne 13-Sep-2019 00:20:30
[2019-09-13] MEDS: OXYCODONE-ACETAMINOPHEN 5-325 MG TABLET PO PRN ×3 (02:00→18:07)
[2019-09-13 06:10] LABS: ABSOLUTE BASOPHILS # (AUTO) 0.1 10^3/uL (0.0-0.2); ABSOLUTE LYMPHOCYTES (AUTO) 1.2 10^3/uL (0.5-4.7); ABSOLUTE MONOCYTES (AUTO) 1.4 10^3/uL (0.1-1.4); ABSOLUTE NEUT (AUTO) 8.6 10^3/uL (1.7-8.2); BASOPHILS % (AUTO) 0.7 % (0-2); EOSINOPHILS % (AUTO) 0.4 % (0-6); HEMATOCRIT 32.6 % (36.0-47.0); LYMPHOCYTES % (AUTO) 10.6 % (13-45); MEAN CORPUSCULAR HEMOGLOBIN 30.3 pg (27.0-33.4); MEAN CORPUSCULAR HGB CONC 33.8 g/dL (32.0-36.0); MEAN CORPUSCULAR VOLUME 90 fl (80-97); MONOCYTES % (AUTO) 12.7 % (3-13); PLATELET COUNT 329 10^3/uL (150-450); RED BLOOD COUNT 3.64 10^6/uL (3.72-5.28); RED CELL DISTRIBUTION WIDTH 12.7 % (11.5-14.0); SEGMENTED NEUTROPHILS % (AUTO) 75.6 % (42-78); TOTAL CELLS COUNTED % (AUTO) 100 %; WHITE BLOOD COUNT 11.4 10^3/uL (4.0-10.5)
[2019-09-13 06:25] LABS: ANION GAP 11 (5-19); CALCIUM 7.7 mg/dL (8.4-10.2); CARBON DIOXIDE 20 mmol/L (22-30); CHLORIDE 105 mmol/L (98-107); POTASSIUM 4.2 mmol/L (3.6-5.0)
[2019-09-13 06:26] LABS: BLOOD UREA NITROGEN 18 mg/dL (7-20); CREATINE KINASE 790 U/L (30-135); GLUCOSE 98 mg/dL (75-110)
[2019-09-13] MEDS: DOCUSATE SODIUM 100 MG CAPSULE PO SCH (09:10)
[2019-09-13] MEDS: FAMOTIDINE 20 MG TABLET PO SCH ×2 (09:10→21:24)
[2019-09-13] MEDS: NORMAL SALINE 1000 ML 1,000 ML IV PRN (09:12)
[2019-09-13] MEDS: TRIAMTERENE/HYDROCHLOROTHIAZID 75-50 MG TABLET PO SCH ×2 (10:24→18:07)
--- NOTE | 2019-09-13 10:24 | EKG REPORT ---
SEVERITY:- ABNORMAL ECG - SINUS RHYTHM NONSPECIFIC INTRAVENTRICULAR CONDUCTION DELAY : Confirmed by: Char Payne 13-Sep-2019 10:23:20
--- NOTE | 2019-09-13 18:02 | PDOC CONSULTATION ---
Consultation Consult Date: 09/13/19 Provider Consulted: LIBERTAD MUNSON Consult reason:: 1. Left shoulder 3 part displaced proximal humerus fracture. 2. Left hip contusion. 3. Left elbow contusion History of Present Illness Admission Date/PCP: 09/12/19 18:33 BAKARI ARRIAGA MD History of Present Illness: RONALD ROSAS is a 83 year old female who sustained a low energy fall at home yesterday. She was admitted to the medical service due to a mild rhabdomyolysis. Labs have normalized with gentle hydration. She sustained a displaced three-part fracture of the left proximal humerus. She is also complaining of some mild left hip and left elbow pain associated with her fall. Past Medical History Cardiac Medical History: Reports: Hypertension Denies: Coronary Artery Disease, Myocardial Infarction Pulmonary Medical History: Reports: None Denies: Asthma, Bronchitis, Chronic Obstructive Pulmonary Disease (COPD), [place] EENT Medical History: Reports: None Neurological Medical History: Reports: None Denies: Seizures Endocrine Medical History: Reports: None Malignancy Medical History: Reports: None GI Medical History: Reports: None Musculoskeltal Medical History: Reports: Arthritis Skin Medical History: Reports: None Psychiatric Medical History: Reports: None Traumatic Medical History: Reports: None Hematology: Reports: Anemia - hx of Infectious Medical History: Reports: None Past Surgical History Past Surgical History: Reports: Hysterectomy, Mastectomy - left Denies: Pacemaker Social History Lives with: Alone Smoking Status: Never Smoker Electronic Cigarette use?: No Frequency of Alcohol Use: None Hx Recreational Drug Use: No Drugs: None Hx Prescription Drug Abuse: No - Advance Directive Resuscitation Status: Full Code Family History Family History: None, Reviewed & Not Pertinent Parental Family History Reviewed: No Children Family History Reviewed: No Sibling(s) Family History Reviewed.: No Medication/Allergy Home Medications: Atorvastatin Calcium [Lipitor 20 mg Tablet] 20 mg PO QHS 09/13/19 Enalapril Maleate [Vasotec 10 mg Tablet] 10 mg PO Q12 09/13/19 Gabapentin [Neurontin 100 mg Capsule] 200 mg PO QHS 09/13/19 Hydroxychloroquine Sulfate [Plaquenil 200 mg Tablet] 200 mg PO BID 09/13/19 Isosorbide Mononitrate [Imdur 30 mg Tablet.er] 15 mg PO DAILY 09/13/19 Levothyroxine Sodium [Synthroid 0.075 mg Tablet] 0.075 mg PO Q6AM 09/13/19 Nitroglycerin 0.4 mg PO Q5MP PRN 09/13/19 Pantoprazole Sodium [Protonix [address] Tablet] 40 mg PO BID 09/13/19 Tramadol HCl [Ultram 50 mg Tablet] 50 mg PO Q12HP PRN 09/13/19 Triamterene/Hydrochlorothiazid [Triamterene-Hctz 37.5-25 mg Cp] 1 cap PO DAILY 09/13/19 Allergies/Adverse Reactions: Sulfa (Sulfonamide Antibiotics) Allergy (Severe, Verified 12/06/18 16:30) n and v IV Contrast Dye Allergy (Intermediate, Uncoded 09/12/19 11:02) Hives Review of Systems Constitutional: ABSENT: chills, fever(s), headache(s), weight gain, weight loss Eyes: ABSENT: visual disturbances Ears: ABSENT: hearing changes Cardiovascular: ABSENT: chest pain, dyspnea on exertion, edema, orthropnea, palpitations Respiratory: ABSENT: cough, hemoptysis Gastrointestinal: ABSENT: abdominal pain, constipation, diarrhea, hematemesis, hematochezia, nausea, vomiting Genitourinary: ABSENT: dysuria, hematuria Musculoskeletal: ABSENT: joint swelling Integumentary: ABSENT: rash, wounds Neurological: ABSENT: abnormal gait, abnormal speech, confusion, dizziness, foca l weakness, syncope Psychiatric: ABSENT: anxiety, depression, homidical ideation, suicidal ideation Endocrine: ABSENT: cold intolerance, heat intolerance, polydipsia, polyuria Hematologic/Lymphatic: ABSENT: easy bleeding, easy bruising Physical Exam Vital Signs: Temp Pulse Resp BP Pulse Ox 98.5 F 88 16 160/62 H 96 09/13/19 16:00 09/13/19 16:00 09/13/19 16:00 09/13/19 16:00 09/13/19 16:00 Intake & Output 09/12/19 09/13/19 09/14/19 06:59 06:59 06:59 Intake Total 1000 120 Balance 1000 120 Weight 86.5 kg General appearance: PRESENT: no acute distress, well-developed, well-nourished Head exam: PRESENT: other - There is a resolving ecchymosis above the left orbi t. CT scan has been performed and is normal. Eye exam: PRESENT: conjunctiva pink, EOMI, PERRLA. ABSENT: scleral icterus Ear exam: PRESENT: normal external ear exam Mouth exam: PRESENT: moist, tongue midline Neck exam: ABSENT: carotid bruit, JVD, lymphadenopathy, thyromegaly Respiratory exam: PRESENT: clear to auscultation kayleigh. ABSENT: rales, rhonchi, wheezes Cardiovascular exam: PRESENT: RRR. ABSENT: diastolic murmur, rubs, systolic murmur Pulses: PRESENT: normal dorsalis pedis pul Vascular exam: PRESENT: normal capillary refill GI/Abdominal exam: PRESENT: normal bowel sounds, soft. ABSENT: distended, guarding, mass, organolmegaly, rebound, tenderness Rectal exam: PRESENT: deferred Extremities exam: PRESENT: other - The left shoulder is immobilized in a sling. There is resolving ecchymosis along the left brachium. There is full passive range of motion of the left elbow, wrist, and digits. Sensation is intact to touch. 2+ radial and ulnar pulses are present. Examination of the left hip: There is no discomfort with gentle internal or external rotation of the left hip. The patient is able to actively move the left knee, ankle, and foot. Sensation is intact to touch. 2+ dorsalis pedis and posterior tibial pulses. Neurological exam: PRESENT: alert, awake, oriented to person, oriented to place, oriented to time, oriented to situation, CN II-XII grossly intact. ABSENT: mo tor sensory deficit Psychiatric exam: PRESENT: appropriate affect, normal mood. ABSENT: homicidal ideation, suicidal ideation Skin exam: PRESENT: dry, intact, warm. ABSENT: cyanosis, rash Results Laboratory Results: 09/13/19 05:45 09/13/19 05:45 09/13/19 09/13/19 05:45 05:45 WBC 11.4 H RBC 3.64 L Hgb 11.0 L D Hct 32.6 L MCV 90 MCH 30.3 MCHC 33.8 RDW 12.7 Plt Count 329 Seg Neutrophils % 75.6 Sodium 136.4 L Potassium 4.2 Chloride 105 Carbon Dioxide 20 L Anion Gap 11 BUN 18 Creatinine 0.81 Est GFR ( Amer) > 60 Glucose 98 Calcium 7.7 L Magnesium 1.5 L 09/12/19 09/12/19 09/12/19 11:18 11:18 17:04 Creatine Kinase 1352 H 1492 H CK-MB (CK-2) 28.40 H Troponin I 0.057 09/12/19 09/12/19 09/13/19 17:04 22:45 05:45 Creatine Kinase 790 H CK-MB (CK-2) 19.60 H Troponin I 0.154 0.170 Impressions: Elbow X-Ray 09/12/19 11:16 IMPRESSION: Very limited negative study Hip X-Ray 09/12/19 11:16 IMPRESSION: NEGATIVE STUDY OF THE LEFT HIP AND PELVIS. NO RADIOGRAPHIC EVIDENCE OF ACUTE INJURY. Shoulder X-Ray 09/12/19 11:16 IMPRESSION: Acute fracture, left proximal humerus metaphysis, extending into the greater tuberosity. Mild valgus angulation at the fracture site Cervical Spine CT 09/12/19 11:18 IMPRESSION: CHRONIC DEGENERATIVE CHANGES. NO ACUTE FINDINGS. Facial Bones CT 09/12/19 11:18 IMPRESSION: NO ACUTE FINDINGS. Head CT 09/12/19 11:18 IMPRESSION: MILD CHRONIC CHANGES OF ATROPHY AND MICROVASCULAR ISCHEMIA. NO ACUTE PROCESS. EVIDENCE OF ACUTE STROKE: NO. Ribs X-Ray 09/12/19 16:41 IMPRESSION: No pneumothorax. No displaced rib fracture. Re- demonstration of left humeral fracture. Assessment & Plan - Diagnosis (1) 3-part fracture of surgical neck of left humerus, initial encounter for closed fracture Is this a current diagnosis for this admission?: Yes (2) Contusion of left elbow, initial encounter Is this a current diagnosis for this admission?: Yes (3) Contusion of left hip, initial encounter Is this a current diagnosis for this admission?: Yes - Time Time Spent: 50 to 70 Minutes Medications reviewed and adjusted accordingly: Yes Anticipated discharge: Home with Homehealth Within: within 48 hours - Plan Summary Plan Summary: I have reviewed the radiographs with the patient and her son. Radiographs of the left hip and left elbow are normal. She may continue weightbearing as tolerated on the left hip and will be encouraged to actively move the left elbow. Radiographs of the left shoulder demonstrate a displaced three-part fracture of the left proximal humerus. Given the patient's relatively high activity level, I have recommended open reduction with internal fixation of the left proximal humerus. Risks, benefits, and alternatives were discussed with the patient and her son. Risks include the risk of with anesthesia, the risk of infection, the risk of injury to nerves and vessels, the risk of nonunion and malunion, and the possible need for additional surgical procedures. An opportunity for questions was provided. All questions were answered to the patient's and son's satisfaction. The patient expressed understanding and wishes to proceed with surgery.
[2019-09-13] MEDS: ISOSORBIDE MONONITRATE 30 MG TAB.ER.24H PO SCH (21:24)
[2019-09-13] MEDS: LORAZEPAM 0.5 MG TABLET PO PRN (23:58)
[2019-09-13] MEDS: ACETAMINOPHEN 325 MG TABLET PO PRN (23:58)
[2019-09-14] MEDS ORDERED: SUCCINYLCHOLINE CHLORIDE INJ 200 MG/10 ML VIAL ONE (09:12)
[2019-09-14] MEDS ORDERED: DEXAMETHASONE SOD PHOSPHATE INJ 4 MG/1 ML VIAL ONE (09:12)
[2019-09-14] MEDS ORDERED: PHENYLEPHRINE HCL INJ/PF 10 MG/1 ML SDV ONE (09:12)
[2019-09-14] MEDS ORDERED: ONDANSETRON HCL INJ/PF 4 MG/2 ML SDV ONE (09:12)
[2019-09-14] MEDS: MORPHINE SULFATE 10 MG/ML INJ IV PRN (10:19)
[2019-09-14] MEDS: DOCUSATE SODIUM 100 MG CAPSULE PO SCH (10:29)
[2019-09-14] MEDS: FAMOTIDINE 20 MG TABLET PO SCH ×2 (10:29→23:07)
[2019-09-14] MEDS: TRIAMTERENE/HYDROCHLOROTHIAZID 75-50 MG TABLET PO SCH ×2 (10:30→17:10)
[2019-09-14] MEDS ORDERED: BUPIVACAINE HCL 0.5 % INJ/PF 30 ML SDV ONE (10:45)
[2019-09-14] MEDS ORDERED: PROPOFOL INJ 200 MG/20 ML VIAL IV ONE (10:52)
[2019-09-14] MEDS ORDERED: FENTANYL CITRATE INJ/PF 100 MCG/2 ML AMPUL ONE ×3 (10:52→14:51)
[2019-09-14] MEDS ORDERED: CEFAZOLIN INJ 1 GM VIAL ONE (11:56)
--- NOTE | 2019-09-14 14:41 | Operative Report ---
Operative Report DATE OF SURGERY: 09/14/19 PREOPERATIVE DIAGNOSIS: Left shoulder displaced three-part proximal humerus fra cture POSTOPERATIVE DIAGNOSIS: Left shoulder displaced three-part proximal humerus fracture OPERATION: 1. Open reduction internal fixation left 3 part proximal humerus fracture. 2. Left shoulder rotator cuff repair SURGEON: LIBERTAD MUNSON ANESTHESIA: GA COMPLICATIONS: None ESTIMATED BLOOD LOSS: 50 cc PROCEDURE: Indications for procedure: Ms. Shepherd is a pleasant 83-year-old woman who sustained a low energy fall at home resulting in a comminuted, displaced three-part fracture of the left proximal humerus. Description of procedure: Following the induction of a general anesthetic and 2 g of Ancef, the patient was positioned supine on the operating room table. All bony prominences were padded. Left upper extremity was sterilely prepped with ChloraPrep and draped in standard fashion. Deltopectoral approach the shoulder was performed. Sharp incision was performed through skin. All skin bleeders were cauterized with electrocautery. Deltopectoral interval was identified and opened. Deep retractors were placed. Evaluation of the fracture was performed. The fracture was significantly displaced. The fracture lines were visualized and the fracture reduced under direct visualization. Bone clamps were placed to realign the articular surfaces. A Papillion locking plate was then applied to the lateral aspect of the humerus through its gliding hole. Correct position was checked under image intensification and the plate was affixed through the gliding hole. At this point it became apparent that the rotator cuff attachment from the humerus had detached. The rotator cuff was then repaired using #2 FiberWire suture. 2 horizontal mattress sutures were placed into the rotator cuff medial to its attachment to the tuberosity. The sutures were placed through the holes at the top of the Gilberto humeral plate. The sutures were then tied bringing the rotator cuff back into its insertion on the humerus. Next under image intensification in multiple locking screws were placed into the head fragment. Lastly several bicortical locking screws were placed in the shaft. The shoulder was taken through a full range of motion under image intensification. The fracture was quite stable and all screws were placed within the head itself. The wound was then copiously irrigated. The deltopectoral interval was closed with 0 Vicryl. The subcutaneous tissue was closed with 2-0 Vicryl. The skin was reapproximated with a subcuticular 3-0 Monocryl suture. Marcaine was injected into the wound for postoperative analgesia and a sterile dressing was applied. The patient tolerated the procedure well without complication was brought to recovery room in stable condition.
--- NOTE | 2019-09-14 14:43 | Progress Note ---
Provider Note Provider Note: Ms. Shepherd is a pleasant 83-year-old woman who underwent open reduction internal fixation of the left proximal humerus today. The patient may be discharged home when appropriate. I have recommended a physical therapy evaluation for ambulation training. She will be nonweightbearing on the left arm for the next 3 months. The patient should follow-up in my office 2 weeks following discharge for wound evaluation.
[2019-09-14] MEDS ORDERED: ACETAMINOPHEN 1,000 MG/100 ML RTUPB IV ONE (14:51)
[2019-09-14] MEDS ORDERED: ONDANSETRON HCL INJ/PF 4 MG/2 ML SDV IV PRN (14:53)
[2019-09-14] MEDS ORDERED: OXYCODONE-ACETAMINOPHEN 5-325 MG TABLET PO PRN ×2 (14:53)
[2019-09-14] MEDS ORDERED: PROMETHAZINE HCL INJ 25 MG/1 ML VIAL IV PRN ×2 (14:53)
[2019-09-14] MEDS ORDERED: MEPERIDINE HCL/PF INJ 25 MG/1 ML DISP.SYRIN IV PRN (14:53)
[2019-09-14] MEDS ORDERED: DIPHENHYDRAMINE HCL 50 MG/ML VIAL IV PRN (14:53)
[2019-09-14] MEDS ORDERED: FENTANYL CITRATE INJ/PF 100 MCG/2 ML AMPUL IV PRN ×2 (14:53)
[2019-09-14] MEDS: FENTANYL CITRATE INJ/PF 100 MCG/2 ML AMPUL IV PRN ×2 (14:55→15:05)
--- NOTE | 2019-09-14 15:00 | PDOC PROGRESS REPORT ---
Subjective Progress Note for:: 09/14/19 Reason For Visit: HUMERUS FRACTURE,RHABDOMYOLYSIS,ELEVATED TROPONINS 09/14/2019 she was originally scheduled to be discharged home yesterday and I dictated discharge from the discharge plan, however orthopedic surgery came by and saw that the patient was in hospital and operated on her humerus fracture today. Patient was originally admitted just for mild rhabdomyolysis and for pain management concerning her bruising and fall. I was going to set the patient up with home health, and then orthopedic's saw the patient and recommended surgery for today. Physical Exam Vital Signs: Temp Pulse Resp BP Pulse Ox 98.7 F 87 17 183/68 H 95 09/14/19 11:46 09/14/19 11:46 09/14/19 11:46 09/14/19 11:46 09/14/19 11:46 Intake & Output 09/13/19 09/14/19 09/15/19 06:59 06:59 06:59 Intake Total 1000 1460 0 Output Total 1300 500 Balance 1000 160 -500 Weight 86.5 kg 86.5 kg General appearance: PRESENT: no acute distress Respiratory exam: PRESENT: clear to auscultation kayleigh. ABSENT: rales, rhonchi, wheezes Cardiovascular exam: PRESENT: RRR. ABSENT: diastolic murmur, rubs, systolic murmur Extremities exam: PRESENT: joint swelling, tenderness, other - Left upper extremity proximal humerus Neurological exam: PRESENT: alert, awake, oriented to person, oriented to place, oriented to time, oriented to situation, CN II-XII grossly intact. ABSENT: mo tor sensory deficit Psychiatric exam: PRESENT: appropriate affect, normal mood. ABSENT: homicidal ideation, suicidal ideation Results Laboratory Results: 09/13/19 05:45 09/13/19 05:45 09/12/19 14:10 Clean Catch Midstream Urine Culture - Final Enterococcus Faecalis(Group D) 09/12/19 09/12/19 09/12/19 11:18 11:18 17:04 Creatine Kinase 1352 H 1492 H CK-MB (CK-2) 28.40 H Troponin I 0.057 09/12/19 09/12/19 09/13/19 17:04 22:45 05:45 Creatine Kinase 790 H CK-MB (CK-2) 19.60 H Troponin I 0.154 0.170 Impressions: Elbow X-Ray 09/12/19 11:16 IMPRESSION: Very limited negative study Hip X-Ray 09/12/19 11:16 IMPRESSION: NEGATIVE STUDY OF THE LEFT HIP AND PELVIS. NO RADIOGRAPHIC EVIDENCE OF ACUTE INJURY. Shoulder X-Ray 09/12/19 11:16 IMPRESSION: Acute fracture, left proximal humerus metaphysis, extending into the greater tuberosity. Mild valgus angulation at the fracture site Cervical Spine CT 09/12/19 11:18 IMPRESSION: CHRONIC DEGENERATIVE CHANGES. NO ACUTE FINDINGS. Facial Bones CT 09/12/19 11:18 IMPRESSION: NO ACUTE FINDINGS. Head CT 09/12/19 11:18 IMPRESSION: MILD CHRONIC CHANGES OF ATROPHY AND MICROVASCULAR ISCHEMIA. NO ACUTE PROCESS. EVIDENCE OF ACUTE STROKE: NO. Ribs X-Ray 09/12/19 16:41 IMPRESSION: No pneumothorax. No displaced rib fracture. Re- demonstration of left humeral fracture. Assessment and Plan - Diagnosis (1) Elevated troponin Is this a current diagnosis for this admission?: Yes (2) Fall Qualifiers: Encounter type: initial encounter Qualified Code(s): W19.XXXA - Unspecified fall, initial encounter Is this a current diagnosis for this admission?: Yes (3) Fracture, humerus, proximal Qualifiers: Encounter type: initial encounter Fracture type: closed Fracture morphology: unspecified fracture morphology Laterality: left Qualified Code(s): S42.202A - Unspecified fracture of upper end of left humerus, initial encounter for closed fracture Is this a current diagnosis for this admission?: Yes (4) Leukocytosis Qualifiers: Leukocytosis type: unspecified Qualified Code(s): D72.829 - Elevated white blood cell count, unspecified Is this a current diagnosis for this admission?: Yes (5) Rhabdomyolysis Qualifiers: Rhabdomyolysis type: traumatic Encounter type: initial encounter Qualified Code(s): T79.6XXA - Traumatic ischemia of muscle, initial encounter Is this a current diagnosis for this admission?: Yes - Plan Summary Summary: Patient has multiple lab abnormalities. Feel that most of these are on the basis of her lying on the floor for 15 hours does not have any chest pain so I think the elevated troponin is coming just muscle breakdown obviously the CK is from the same thing. At 83 with her medical condition he would not be a candidate for anything aggressive such as catheterization and further cardiac work-up Put patient in for IV fluid gentle hydration, pain medication, serial lab work. Patient and her family understands this and are appreciative of us putting her in tonight. 09/14/2019 Patient may be a disposition problem now she has had surgery on her left humerus. Medically patient is stable. I am unsure what her baseline activity level was prior to the fall. Patient is sore all over secondary to the fall, one would expect at the age of 83. I am not concerned about her abnormal labs on admission. Discharge planning has things in place for home health, with PT and OT and nursing at home. We will see how patient does today and tonight following surgery for her pain management and ability to get up out of bed in the morning - Time Time Spent with patient: 25-34 minutes
--- NOTE | 2019-09-14 16:20 | RADIOLOGY REPORT (SQ) ---
EXAM DESCRIPTION: HUMERUS LEFT; NO CHG FLUORO COMPLETED DATE/TIME: 09/14/2019 2:50 pm REASON FOR STUDY: ORIF LEFT HUMERUS ASST WITH FLUORO IN OR COMPARISON: 09/12/2019. FLUOROSCOPY TIME: 0.4 minutes. 4 images saved to PACS. TECHNIQUE: Intra-operative images acquired during surgical procedure to evaluate progress. NUMBER OF IMAGES: 4 images. LIMITATIONS: None. FINDINGS: Images of the shoulder acquired during surgical fixation. IMPRESSION: IMAGE(S) OBTAINED DURING PROCEDURE. COMMENT: Quality ID [id number]: Final reports for procedures using fluoroscopy that document radiation exp osure indices, or exposure time and number of fluorographic images (if radiation exposure indices are not available) Please consult full operative report of the attending physician for description of the procedure. TECHNICAL DOCUMENTATION: JOB ID: [id number] [employer]- All Rights Reserved Reading location - IP/workstation name: [email or web address]
--- NOTE | 2019-09-14 16:20 | RADIOLOGY REPORT (SQ) ---
EXAM DESCRIPTION: HUMERUS LEFT; NO CHG FLUORO COMPLETED DATE/TIME: 09/14/2019 2:50 pm REASON FOR STUDY: ORIF LEFT HUMERUS ASST WITH FLUORO IN OR COMPARISON: 09/12/2019. FLUOROSCOPY TIME: 0.4 minutes. 4 images saved to PACS. TECHNIQUE: Intra-operative images acquired during surgical procedure to evaluate progress. NUMBER OF IMAGES: 4 images. LIMITATIONS: None. FINDINGS: Images of the shoulder acquired during surgical fixation. IMPRESSION: IMAGE(S) OBTAINED DURING PROCEDURE. COMMENT: Quality ID [id number]: Final reports for procedures using fluoroscopy that document radiation exp osure indices, or exposure time and number of fluorographic images (if radiation exposure indices are not available) Please consult full operative report of the attending physician for description of the procedure. TECHNICAL DOCUMENTATION: JOB ID: [id number] [employer]- All Rights Reserved Reading location - IP/workstation name: [email or web address]
[2019-09-14] MEDS: OXYCODONE-ACETAMINOPHEN 5-325 MG TABLET PO PRN (17:13)
--- NOTE | 2019-09-14 20:55 | RADIOLOGY REPORT (SQ) ---
EXAM DESCRIPTION: [facility]: XR CHEST 1 VIEW CLINICAL HISTORY: 83 years Female, FLUID OVERLOAD COMPARISON: 07/31/2016 FINDINGS: Lungs: Slightly hyperinflated as on prior exam. There is minimal linear scarring versus atelectasis in the left lower lobe. No acute infiltrates. No significant interstitial edema. No pneumothorax or pleural effusion. Mediastinum: Aortic calcifications are again noted. Heart size is within normal limits for positioning. Several surgical clips are again noted at the thoracic inlet. Bones: Fixation screws are partially visualized in the left humeral head. IMPRESSION: 1. No acute pulmonary findings.
[2019-09-14] MEDS: ACETAMINOPHEN 325 MG TABLET PO PRN (23:05)
[2019-09-14] MEDS: ISOSORBIDE MONONITRATE 30 MG TAB.ER.24H PO SCH (23:06)
[2019-09-14] MEDS: CEFAZOLIN SODIUM 2 GM in DEXTROSE 5%-WATER 100 ML IV SCH (23:07)
[2019-09-14] MEDS: LORAZEPAM 0.5 MG TABLET PO PRN (23:08)
[2019-09-14] MEDS: NORMAL SALINE 1000 ML 1,000 ML IV PRN ×2 (23:14)
[2019-09-15] MEDS: CEFAZOLIN SODIUM 2 GM in DEXTROSE 5%-WATER 100 ML IV SCH ×2 (05:41→15:30)
[2019-09-15] MEDS: OXYCODONE-ACETAMINOPHEN 5-325 MG TABLET PO PRN ×3 (05:42→18:19)
[2019-09-15] MEDS: TRIAMTERENE/HYDROCHLOROTHIAZID 75-50 MG TABLET PO SCH ×2 (09:42→18:19)
[2019-09-15] MEDS: DOCUSATE SODIUM 100 MG CAPSULE PO SCH (09:42)
[2019-09-15] MEDS: FAMOTIDINE 20 MG TABLET PO SCH ×2 (09:42→21:31)
--- NOTE | 2019-09-15 16:57 | PDOC PROGRESS REPORT ---
Subjective Progress Note for:: 09/15/19 Subjective:: Patient is doing well today. She states that her pain is controlled. Denies any shortness of breath or chest pain. Reason For Visit: HUMERUS FRACTURE,RHABDOMYOLYSIS,ELEVATED TROPONINS Physical Exam Vital Signs: Temp Pulse Resp BP Pulse Ox 97.4 F 102 H 17 190/107 H 98 09/15/19 08:59 09/15/19 08:59 09/15/19 00:09 09/15/19 08:59 09/15/19 08:59 Intake & Output 09/14/19 09/15/19 09/16/19 06:59 06:59 06:59 Intake Total 1460 4730 Output Total 1300 1680 Balance 160 3050 Weight 86.5 kg 90.5 kg General appearance: PRESENT: no acute distress Head exam: PRESENT: normocephalic Eye exam: PRESENT: conjunctiva pink Ear exam: ABSENT: bleeding Mouth exam: ABSENT: dry mucosa Throat exam: ABSENT: post pharyngeal erythema Neck exam: ABSENT: carotid bruit, JVD Respiratory exam: PRESENT: clear to auscultation kayleigh. ABSENT: accessory muscle use Cardiovascular exam: PRESENT: RRR, +S1. ABSENT: bradycardia Vascular exam: PRESENT: normal capillary refill GI/Abdominal exam: PRESENT: normal bowel sounds. ABSENT: distended, guarding Rectal exam: PRESENT: deferred Extremities exam: PRESENT: other - Left arm in sling. Minimal tenderness at shoulder. ABSENT: calf tenderness Neurological exam: PRESENT: alert, awake Psychiatric exam: ABSENT: agitated Results Laboratory Results: 09/13/19 05:45 09/13/19 05:45 09/12/19 09/12/19 09/12/19 11:18 11:18 17:04 Creatine Kinase 1352 H 1492 H CK-MB (CK-2) 28.40 H Troponin I 0.057 NT-Pro-B Natriuret Pep 09/12/19 09/12/19 09/13/19 17:04 22:45 05:45 Creatine Kinase 790 H CK-MB (CK-2) 19.60 H Troponin I 0.154 0.170 NT-Pro-B Natriuret Pep 09/14/19 20:00 Creatine Kinase CK-MB (CK-2) Troponin I NT-Pro-B Natriuret Pep 3170 H Impressions: Elbow X-Ray 09/12/19 11:16 IMPRESSION: Very limited negative study Hip X-Ray 09/12/19 11:16 IMPRESSION: NEGATIVE STUDY OF THE LEFT HIP AND PELVIS. NO RADIOGRAPHIC EVIDENCE OF ACUTE INJURY. Shoulder X-Ray 09/12/19 11:16 IMPRESSION: Acute fracture, left proximal humerus metaphysis, extending into the greater tuberosity. Mild valgus angulation at the fracture site Cervical Spine CT 09/12/19 11:18 IMPRESSION: CHRONIC DEGENERATIVE CHANGES. NO ACUTE FINDINGS. Facial Bones CT 09/12/19 11:18 IMPRESSION: NO ACUTE FINDINGS. Head CT 09/12/19 11:18 IMPRESSION: MILD CHRONIC CHANGES OF ATROPHY AND MICROVASCULAR ISCHEMIA. NO ACUTE PROCESS. EVIDENCE OF ACUTE STROKE: NO. Ribs X-Ray 09/12/19 16:41 IMPRESSION: No pneumothorax. No displaced rib fracture. Re- demonstration of left humeral fracture. Chest X-Ray 09/14/19 00:00 IMPRESSION: 1. No acute pulmonary findings. Fluoroscopy 09/14/19 00:00 IMPRESSION: IMAGE(S) OBTAINED DURING PROCEDURE. Humerus X-Ray 09/14/19 00:00 IMPRESSION: IMAGE(S) OBTAINED DURING PROCEDURE. Assessment and Plan - Diagnosis (1) Hypertensive urgency Is this a current diagnosis for this admission?: Yes (2) Fracture, humerus, proximal Qualifiers: Encounter type: initial encounter Fracture type: closed Fracture morphology: unspecified fracture morphology Laterality: left Qualified Code(s): S42.202A - Unspecified fracture of upper end of left humerus, initial encounter for closed fracture Is this a current diagnosis for this admission?: Yes Plan: Status post open reduction on 09/14/2019. Will be nonweightbearing on left arm. Pain control. Follow-up outpatient with orthopedic surgery. (3) Fall Qualifiers: Encounter type: initial encounter Qualified Code(s): W19.XXXA - Unspecified fall, initial encounter Is this a current diagnosis for this admission?: Yes Plan: Evaluated by physical therapy who deemed the patient she would require 24/7 assistance if discharged home or will direct or would need SNF. Case management made aware. (4) Rhabdomyolysis Qualifiers: Rhabdomyolysis type: traumatic Encounter type: initial encounter Qualified Code(s): T79.6XXA - Traumatic ischemia of muscle, initial encounter Is this a current diagnosis for this admission?: Yes Plan: CK level has substantially reduced. Will encourage p.o. hydration - Plan Summary Summary: Patient has multiple lab abnormalities. Feel that most of these are on the basis of her lying on the floor for 15 hours does not have any chest pain so I think the elevated troponin is coming just muscle breakdown obviously the CK is from the same thing. At 83 with her medical condition he would not be a candidate for anything aggressive such as catheterization and further cardiac work-up Put patient in for IV fluid gentle hydration, pain medication, serial lab work. Patient and her family understands this and are appreciative of us putting her in tonight. 09/14/2019 Patient may be a disposition problem now she has had surgery on her left humerus. Medically patient is stable. I am unsure what her baseline activity level was prior to the fall. Patient is sore all over secondary to the fall, one would expect at the age of 83. I am not concerned about her abnormal labs on admission. Discharge planning has things in place for home health, with PT and OT and nursing at home. We will see how patient does today and tonight following surgery for her pain management and ability to get up out of bed in the morning - Time Time Spent with patient: 35 or more minutes
[2019-09-15] MEDS ORDERED: AMLODIPINE BESYLATE 5 MG TABLET PO ONE (18:00)
[2019-09-15] MEDS: AMLODIPINE BESYLATE 5 MG TABLET PO SCH (21:30)
[2019-09-15] MEDS: ISOSORBIDE MONONITRATE 30 MG TAB.ER.24H PO SCH (21:31)
[2019-09-15] MEDS: MORPHINE SULFATE 10 MG/ML INJ IV PRN (21:36)
[2019-09-16] MEDS: OXYCODONE-ACETAMINOPHEN 5-325 MG TABLET PO PRN ×3 (02:44→14:49)
[2019-09-16] MEDS: TRIAMTERENE/HYDROCHLOROTHIAZID 75-50 MG TABLET PO SCH (09:28)
[2019-09-16] MEDS: AMLODIPINE BESYLATE 5 MG TABLET PO SCH (09:28)
[2019-09-16] MEDS: FAMOTIDINE 20 MG TABLET PO SCH (09:28)
[2019-09-16] MEDS: DOCUSATE SODIUM 100 MG CAPSULE PO SCH (09:28)
--- NOTE | 2019-09-16 10:56 | PDOC PROGRESS REPORT ---
Subjective Progress Note for:: 09/16/19 Subjective:: Patient is doing well today. She complains of some pain in her left elbow but improves with the pain medication. Patient otherwise denies any headaches fever chills chest pain or trouble breathing. Reason For Visit: HUMERUS FRACTURE,RHABDOMYOLYSIS,ELEVATED TROPONINS Physical Exam Vital Signs: Temp Pulse Resp BP Pulse Ox 97.9 F 78 16 151/65 H 97 09/16/19 08:07 09/16/19 08:52 09/16/19 08:07 09/16/19 08:07 09/16/19 08:07 Intake & Output 09/15/19 09/16/19 09/17/19 06:59 06:59 06:59 Intake Total 4830 1254 100 Output Total 1680 2650 Balance 3150 -1396 100 Weight 90.5 kg 89.9 kg General appearance: PRESENT: no acute distress, cooperative Head exam: PRESENT: atraumatic Eye exam: PRESENT: conjunctiva pink Mouth exam: PRESENT: moist Neck exam: ABSENT: JVD Respiratory exam: PRESENT: clear to auscultation kayleigh Cardiovascular exam: PRESENT: RRR, +S1 Vascular exam: ABSENT: pallor GI/Abdominal exam: PRESENT: normal bowel sounds, soft. ABSENT: tenderness Rectal exam: PRESENT: deferred Musculoskeletal exam: PRESENT: other - Left arm in sling. Tender in the upper arm and elbow region with some swelling. No vascular compromise noted with femoral pulses in the left arm. Neurological exam: PRESENT: alert, awake Psychiatric exam: ABSENT: agitated Results Laboratory Results: 09/13/19 05:45 09/13/19 05:45 09/12/19 09/12/19 09/12/19 11:18 11:18 17:04 Creatine Kinase 1352 H 1492 H CK-MB (CK-2) 28.40 H Troponin I 0.057 NT-Pro-B Natriuret Pep 09/12/19 09/12/19 09/13/19 17:04 22:45 05:45 Creatine Kinase 790 H CK-MB (CK-2) 19.60 H Troponin I 0.154 0.170 NT-Pro-B Natriuret Pep 09/14/19 20:00 Creatine Kinase CK-MB (CK-2) Troponin I NT-Pro-B Natriuret Pep 3170 H Impressions: Elbow X-Ray 09/12/19 11:16 IMPRESSION: Very limited negative study Hip X-Ray 09/12/19 11:16 IMPRESSION: NEGATIVE STUDY OF THE LEFT HIP AND PELVIS. NO RADIOGRAPHIC EVIDENCE OF ACUTE INJURY. Shoulder X-Ray 09/12/19 11:16 IMPRESSION: Acute fracture, left proximal humerus metaphysis, extending into the greater tuberosity. Mild valgus angulation at the fracture site Cervical Spine CT 09/12/19 11:18 IMPRESSION: CHRONIC DEGENERATIVE CHANGES. NO ACUTE FINDINGS. Facial Bones CT 09/12/19 11:18 IMPRESSION: NO ACUTE FINDINGS. Head CT 09/12/19 11:18 IMPRESSION: MILD CHRONIC CHANGES OF ATROPHY AND MICROVASCULAR ISCHEMIA. NO ACUTE PROCESS. EVIDENCE OF ACUTE STROKE: NO. Ribs X-Ray 09/12/19 16:41 IMPRESSION: No pneumothorax. No displaced rib fracture. Re- demonstration of left humeral fracture. Chest X-Ray 09/14/19 00:00 IMPRESSION: 1. No acute pulmonary findings. Fluoroscopy 09/14/19 00:00 IMPRESSION: IMAGE(S) OBTAINED DURING PROCEDURE. Humerus X-Ray 09/14/19 00:00 IMPRESSION: IMAGE(S) OBTAINED DURING PROCEDURE. Assessment and Plan - Diagnosis (1) Hypertensive urgency Is this a current diagnosis for this admission?: Yes Plan: Hypertensive urgency has resolved. Blood pressure improved but is not yet optimized. Continue with current regimen. Amlodipine 5 mg every 12 hours restarted. Pain control. (2) Fracture, humerus, proximal Qualifiers: Encounter type: initial encounter Fracture type: closed Fracture morphology: unspecified fracture morphology Laterality: left Qualified Code(s): S42.202A - Unspecified fracture of upper end of left humerus, initial encounter for closed fracture Is this a current diagnosis for this admission?: Yes Plan: Status post open reduction on 09/14/2019. Will be nonweightbearing on left arm for the next [address] Barrera. Pain control with percocet. Follow-up outpatient with orthopedic surgery. (3) Fall Qualifiers: Encounter type: initial encounter Qualified Code(s): W19.XXXA - Unspecified fall, initial encounter Is this a current diagnosis for this admission?: Yes Plan: Evaluated by physical therapy who deemed the patient she would require 24/7 assistance if discharged home or would need SNF. [employer] made aware. (4) Rhabdomyolysis Qualifiers: Rhabdomyolysis type: traumatic Encounter type: initial encounter Qualified Code(s): T79.6XXA - Traumatic ischemia of muscle, initial encounter Is this a current diagnosis for this admission?: Yes Plan: CK level has substantially reduced. Will encourage p.o. hydration. Stable - Time Time Spent with patient: 15-24 minutes
[2019-09-16 14:16] VITALS: BP 157/70
[2019-09-16] MEDS: ACETAMINOPHEN 325 MG TABLET PO PRN (14:50)
--- NOTE | 2019-09-16 17:05 | PDOC DISCHARGE SUMMARY ---
Impression - Admit/DC Date/PCP Admission Date/Primary Care Provider: 09/15/19 20:21 BAKARI ARRIAGA MD Discharge Date: 09/16/19 - Discharge Diagnosis (1) Hypertensive urgency Is this a current diagnosis for this admission?: Yes (2) Fracture, humerus, proximal Is this a current diagnosis for this admission?: Yes (3) Fall Is this a current diagnosis for this admission?: Yes (4) Rhabdomyolysis Is this a current diagnosis for this admission?: Yes - Assessment Summary: 83-year-old female presented to the hospital after being found down at home. On presentation she was complaining of pain in her left elbow region. On evaluation in the ER patient was noted to have a fracture of the surgical neck of her left humerus. She was also noted to have elevated creatinine kinase level which was thought to be secondary from patient's fall and being indisposed on the floor for long amount of time before being found. Patient was subsequently admitted for rhabdomyolysis and given aggressive fluid hydration. Patient had elevated troponin levels on admission secondary to rhabdomyolysis. With aggressive fluid hydration creatinine kinase level dropped down significantly. Patient was seen by orthopedic surgery while in the hospital was taken for an open reduction with internal fixation. Procedure went well. Patient's left arm was secured with a sling and given adequate pain control medication. Patient requires repositioning in an upright position to alleviate the pain that an ordinary bed will not allow. Patient has any mediates need for change in body positioning at discharge. Patient's blood pressure was also noted to be significantly elevated indicating for hypertensive urgency. Her amlodipine was restarted with improvement in blood pressure. Patient subsequently discharged with follow-up instructions to follow-up with the orthopedic clinic. - Additional Information Resuscitation Status: Full Code Discharge Diet: As Tolerated Discharge Activity: Balance Activity w/Rest, No Lifting Over 10 Pounds, No Lifting/Push/Pulling, Slowly Increase Activity, Other Referrals: BAKARI ARRIAGA MD [Primary Care Provider] - Follow up as needed (PATIENT TO SCHEDULE FOLLOW UP APPT.) LIBERTAD MUNSON MD [ACTIVE PROVISIONAL STAFF] - (NO ANSWER AT PROVIDER'S OFFICE. PATIENT TO SCHEDULE OWN APPT.) Prescriptions: Amlodipine Besylate [Norvasc 5 mg Tablet] 5 mg PO Q12 #30 Oxycodone HCl/Acetaminophen [Percocet 5-325 mg Tablet] 1 tab PO Q4HP PRN #14 tablet PRN Reason: Home Medications: Atorvastatin Calcium [Lipitor 20 mg Tablet] 20 mg PO QHS 09/13/19 Gabapentin [Neurontin 100 mg Capsule] 200 mg PO QHS 09/13/19 Hydroxychloroquine Sulfate [Plaquenil 200 mg Tablet] 200 mg PO BID 09/13/19 Isosorbide Mononitrate [Imdur 30 mg Tablet.er] 15 mg PO DAILY 09/13/19 Levothyroxine Sodium [Synthroid 0.075 mg Tablet] 0.075 mg PO Q6AM 09/13/19 Nitroglycerin 0.4 mg PO Q5MP PRN 09/13/19 Pantoprazole Sodium [Protonix [address] Tablet] 40 mg PO BID 09/13/19 Tramadol HCl [Ultram 50 mg Tablet] 50 mg PO Q12HP PRN 09/13/19 Triamterene/Hydrochlorothiazid [Triamterene-Hctz 37.5-25 mg Cp] 1 cap PO DAILY 09/13/19 Amlodipine Besylate [Norvasc 5 mg Tablet] 5 mg PO Q12 #30 09/16/19 Enalapril Maleate [Vasotec 10 mg Tablet] 10 mg PO Q12 #0 09/16/19 Oxycodone HCl/Acetaminophen [Percocet 5-325 mg Tablet] 1 tab PO Q4HP PRN #14 tablet 09/16/19 History of Present Illiness History of Present Illness: RONALD ROSAS is a 83 year old female Physical Exam Vital Signs: Temp Pulse Resp BP Pulse Ox 98.5 F 86 15 157/70 H 97 09/16/19 14:14 09/16/19 14:14 09/16/19 14:14 09/16/19 14:14 09/16/19 14:14 Intake & Output 09/15/19 09/16/19 09/17/19 06:59 06:59 06:59 Intake Total 4830 1254 340 Output Total 1680 2650 300 Balance 3150 -1396 40 Weight 90.5 kg 89.9 kg Results Laboratory Results: WBC 11.4 10^3/uL (4.0-10.5) H 09/13/19 05:45 RBC 3.64 10^6/uL (3.72-5.28) L 09/13/19 05:45 Hgb 11.0 g/dL (12.0-15.5) L D 09/13/19 05:45 Hct 32.6 % (36.0-47.0) L 09/13/19 05:45 MCV 90 fl (80-97) 09/13/19 05:45 MCH 30.3 pg (27.0-33.4) 09/13/19 05:45 MCHC 33.8 g/dL (32.0-36.0) 09/13/19 05:45 RDW 12.7 % (11.5-14.0) 09/13/19 05:45 Plt Count 329 10^3/uL (150-450) 09/13/19 05:45 Lymph % (Auto) 10.6 % (13-45) L 09/13/19 05:45 Spink % (Auto) 12.7 % (3-13) 09/13/19 05:45 Eos % (Auto) 0.4 % (0-6) 09/13/19 05:45 Baso % (Auto) 0.7 % (0-2) 09/13/19 05:45 Absolute Neuts (auto) 8.6 10^3/uL (1.7-8.2) H 09/13/19 05:45 Absolute Lymphs (auto) 1.2 10^3/uL (0.5-4.7) 09/13/19 05:45 Absolute Monos (auto) 1.4 10^3/uL (0.1-1.4) 09/13/19 05:45 Absolute Eos (auto) 0.0 10^3/uL (0.0-0.6) 09/13/19 05:45 Absolute Basos (auto) 0.1 10^3/uL (0.0-0.2) 09/13/19 05:45 Total Counted 100 09/12/19 11:18 Seg Neutrophils % 75.6 % (42-78) 09/13/19 05:45 Seg Neuts % (Manual) 91 % (42-78) H 09/12/19 11:18 Lymphocytes % (Manual) 3 % (13-45) L 09/12/19 11:18 Monocytes % (Manual) 6 % (3-13) 09/12/19 11:18 Eosinophils % (Manual) 0 % (0-6) 09/12/19 11:18 Basophils % (Manual) 0 % (0-2) 09/12/19 11:18 Abs Neuts (Manual) 16.0 10^3/uL (1.7-8.2) H 09/12/19 11:18 Abs Lymphs (Manual) 0.5 10^3/uL (0.5-4.7) 09/12/19 11:18 Abs Monocytes (Manual) 1.1 10^3/uL (0.1-1.4) 09/12/19 11:18 Absolute Eos (Manual) 0.0 10^3/uL (0.0-0.6) 09/12/19 11:18 Abs Basophils (Manual) 0.0 10^3/uL (0.0-0.2) 09/12/19 11:18 Smudge Cells PRESENT 09/12/19 11:18 Platelet Comment ADEQUATE 09/12/19 11:18 PT 14.4 SEC (11.4-15.4) 09/12/19 11:18 INR 1.12 09/12/19 11:18 APTT 30.0 SEC (23.5-35.8) 09/12/19 11:18 Sodium 136.4 mmol/L (137-145) L 09/13/19 05:45 Potassium 4.2 mmol/L (3.6-5.0) 09/13/19 05:45 Chloride 105 mmol/L (98-107) 09/13/19 05:45 Carbon Dioxide 20 mmol/L (22-30) L 09/13/19 05:45 Anion Gap 11 (5-19) 09/13/19 05:45 BUN 18 mg/dL (7-20) 09/13/19 05:45 Creatinine 0.81 mg/dL (0.52-1.25) 09/13/19 05:45 Est GFR ( Amer) > 60 (>60) 09/13/19 05:45 Est GFR (MDRD) Non-Af > 60 (>60) 09/13/19 05:45 Glucose 98 mg/dL (75-110) 09/13/19 05:45 POC Glucose 94 mg/dL (70-110) 09/13/19 09:02 Calcium 7.7 mg/dL (8.4-10.2) L 09/13/19 05:45 Magnesium 1.5 mg/dL (1.6-2.3) L 09/13/19 05:45 Total Bilirubin 0.6 mg/dL (0.2-1.3) 09/12/19 11:18 Direct Bilirubin 0.2 mg/dL (0.0-0.4) 09/12/19 11:18 Neonat Total Bilirubin Not Reportable 09/12/19 11:18 Neonat Direct Bilirubin Not Reportable 09/12/19 11:18 Neonat Indirect Bili Not Reportable 09/12/19 11:18 AST 46 U/L (14-36) H 09/12/19 11:18 ALT 23 U/L (<35) 09/12/19 11:18 Alkaline Phosphatase 87 U/L (38-126) 09/12/19 11:18 Creatine Kinase 790 U/L (30-135) H 09/13/19 05:45 CK-MB (CK-2) 19.60 ng/mL (<4.55) H 09/12/19 22:45 Troponin I 0.170 ng/mL 09/12/19 22:45 NT-Pro-B Natriuret Pep 3170 pg/mL (<450) H 09/14/19 20:00 Total Protein 6.5 g/dL (6.3-8.2) 09/12/19 11:18 Albumin 4.0 g/dL (3.5-5.0) 09/12/19 11:18 Urine Color YELLOW 09/12/19 14:10 Urine Appearance CLEAR 09/12/19 14:10 Urine pH 5.0 (5.0-9.0) 09/12/19 14:10 Ur Specific Moon 1.012 09/12/19 14:10 Urine Protein NEGATIVE mg/dL (NEGATIVE) 09/12/19 14:10 Urine Glucose (UA) NEGATIVE mg/dL (NEGATIVE) 09/12/19 14:10 Urine Ketones NEGATIVE mg/dL (NEGATIVE) 09/12/19 14:10 Urine Blood SMALL (NEGATIVE) H 09/12/19 14:10 Urine Nitrite (Reflex) NEGATIVE (NEGATIVE) 09/12/19 14:10 Urine Bilirubin NEGATIVE (NEGATIVE) 09/12/19 14:10 Urine Urobilinogen NEGATIVE mg/dL (<2.0) 09/12/19 14:10 Leukocyte Esterase Rfl TRACE (NEGATIVE) H 09/12/19 14:10 Urine RBC (Auto) 1 /HPF 09/12/19 14:10 U Hyaline Cast (Auto) 4 /LPF 09/12/19 14:10 Urine Bacteria (Auto) TRACE /HPF 09/12/19 14:10 Urine WBC (Reflex) 2 /HPF 09/12/19 14:10 Squamous Epi Cells Auto 5 /HPF 09/12/19 14:10 Urine Mucus (Auto) RARE /LPF 09/12/19 14:10 Urine Ascorbic Acid NEGATIVE (NEGATIVE) 09/12/19 14:10 09/12/19 09/12/19 09/12/19 11:18 17:04 22:45 CK-MB (CK-2) 28.40 H 19.60 H Troponin I 0.057 0.154 0.170 NT-Pro-B Natriuret Pep 09/14/19 20:00 CK-MB (CK-2) Troponin I NT-Pro-B Natriuret Pep 3170 H Impressions: Elbow X-Ray 09/12/19 11:16 IMPRESSION: Very limited negative study Hip X-Ray 09/12/19 11:16 IMPRESSION: NEGATIVE STUDY OF THE LEFT HIP AND PELVIS. NO RADIOGRAPHIC EVIDENCE OF ACUTE INJURY. Shoulder X-Ray 09/12/19 11:16 IMPRESSION: Acute fracture, left proximal humerus metaphysis, extending into the greater tuberosity. Mild valgus angulation at the fracture site Cervical Spine CT 09/12/19 11:18 IMPRESSION: CHRONIC DEGENERATIVE CHANGES. NO ACUTE FINDINGS. Facial Bones CT 09/12/19 11:18 IMPRESSION: NO ACUTE FINDINGS. Head CT 09/12/19 11:18 IMPRESSION: MILD CHRONIC CHANGES OF ATROPHY AND MICROVASCULAR ISCHEMIA. NO ACU TE PROCESS. EVIDENCE OF ACUTE STROKE: NO. Ribs X-Ray 09/12/19 16:41 IMPRESSION: No pneumothorax. No displaced rib fracture. Re- demonstration of left humeral fracture. Chest X-Ray 09/14/19 00:00 IMPRESSION: 1. No acute pulmonary findings. Fluoroscopy 09/14/19 00:00 IMPRESSION: IMAGE(S) OBTAINED DURING PROCEDURE. Humerus X-Ray 09/14/19 00:00 IMPRESSION: IMAGE(S) OBTAINED DURING PROCEDURE. Stroke Is this a Stroke Patient?: No Acute Heart Failure - Is this a Heart Failure Patient?: No
== END 2019-09-16 15:43 | disposition home health service (06) | DRG 494 ==
LOC: ER 10:32 → EH 18:33 → 5 19:23 → OBSVTOIN 09-15 20:21
PROVIDERS: ADMIT Internal Medicine; ATTEND Internal Medicine
PROC: 0PSG04Z Reposition Left Humeral Shaft with Internal Fixation Device, Open Approach (ICD-10-PCS; 2019-09-14)
PROC: 0LQ20ZZ Repair Left Shoulder Tendon, Open Approach (ICD-10-PCS; 2019-09-14)
PROC: 0PSD04Z Reposition Left Humeral Head with Internal Fixation Device, Open Approach (ICD-10-PCS; principal; 2019-09-14 11:30)
DX: S42.292A Other displaced fracture of upper end of left humerus, initial encounter for closed fracture (principal); S42.252A Displaced fracture of greater tuberosity of left humerus, initial encounter for closed fracture; T79.6XXA Traumatic ischemia of muscle, initial encounter; I16.0 Hypertensive urgency; S70.02XA Contusion of left hip, initial encounter; S50.02XA Contusion of left elbow, initial encounter; W18.30XA Fall on same level, unspecified, initial encounter; Y92.013 Bedroom of single-family (private) house as the place of occurrence of the external cause; M75.102 Unspecified rotator cuff tear or rupture of left shoulder, not specified as traumatic; R79.89 Other specified abnormal findings of blood chemistry; D72.829 Elevated white blood cell count, unspecified; S00.12XA Contusion of left eyelid and periocular area, initial encounter; I25.10 Atherosclerotic heart disease of native coronary artery without angina pectoris; M19.90 Unspecified osteoarthritis, unspecified site; Z90.12 Acquired absence of left breast and nipple; Z88.2 Allergy status to sulfonamides; Z91.041 Radiographic dye allergy status
CPT/HCPCS: 01740; 36415; 70450; 70486; 71045; 71111; 72125; 80048; 80053; 81001; 82550; 82553; 82962; 83735; 83880; 84484; 85025; 85610; 85730; 87086; 87088; 87186; 93005; 93010; 96361; 96374; 99285; C1713; G0378; J0131; J0330; J0360; J0690; J1100; J2270; J2370; J2405; J2704; J3010; J3490; J7030; J7060; L3650